=== PATIENT | male | born 1935 | race Caucasian/White ===

== ENCOUNTER 2016-06-14 14:59 | Inpatient (IN) | payer MEDICARE ==
[2016-06-14] MEDS ORDERED: SODIUM CHLORIDE 0.9% 1,000 ML IV STA (15:36)
--- NOTE | 2016-06-14 15:39 | ED ---
General Adult HPI - General Chief complaint: Urogenital Stated complaint: Abnormal Labs Time Seen by Provider: 06/14/16 15:27 Source: patient, RN notes reviewed Mode of arrival: wheelchair Limitations: no limitations - History of Present Illness Initial comments: Patient is a 81-year-old male who presents emergency room today with a chief complaint of increased falls. He states that when he stands up feels very weak. He states that he's been feeling unsteady on his feet. He states that he was advised by the home nurse that she come to the emergency room. Patient does admit to leg swelling in his lower legs. Patient states had this in the past. Admits some pain to the left elbow and also to the left heel. He states she's had frequent falls. Denies any recent head injuries or loss consciousness. Denies any use of blood thinners. He denies any other complaints. Patient denies any recent fever, chills, shortness of breath, chest pain, back pain, abdominal pain, nausea or vomiting, numbness or tingling, dysuria or hematuria, constipation or diarrhea, headaches or visual changes, or any other complaints. - Related Data Home Medications Medication Instructions Recorded Confirmed Finasteride [Proscar] 5 mg PO DAILY 02/06/15 06/14/16 QUEtiapine [SEROquel] 25 mg PO HS 06/11/15 06/14/16 Tamsulosin HCl [Flomax] 0.4 mg PO DAILY 06/11/15 06/14/16 Loteprednol Etabonate [Lotemax] 1 drop BOTH EYES TID PRN 08/10/15 06/14/16 Lisinopril [Zestril] 10 mg PO DAILY 05/04/16 06/14/16 Carbidopa/Levodopa [Sinemet CR 1 tab PO TID 06/14/16 06/14/16 50-200 mg] Furosemide [Lasix] 20 mg PO QAM 06/14/16 06/14/16 Gabapentin 600 mg PO BID 06/14/16 06/14/16 Meloxicam [Mobic] 7.5 mg PO BID PRN 06/14/16 06/14/16 Previous Rx's Medication Instructions Recorded Divalproex [Depakote] 1,000 mg PO BID tablet. 05/07/16 Allergies Allergy/AdvReac Type Severity Reaction Status Date / Time aspirin Allergy Rash/Hives Verified 06/14/16 16:18 cephalexin monohydrate Allergy Unknown Verified 05/04/16 11:16 [From Keflex] diphenhydramine HCl Allergy Rash/Hives Verified 06/14/16 16:18 [From Benadryl] Penicillins Allergy Unknown Verified 05/04/16 11:16 Sulfa (Sulfonamide Allergy Unknown Verified 05/04/16 11:16 Antibiotics) latex AdvReac Unknown Verified 05/04/16 11:16 Review of Systems ROS Statement: Those systems with pertinent positive or pertinent negative responses have been documented in the HPI. ROS Other: All systems not noted in ROS Statement are negative. 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, jihan lens surgery Past Anesthesia/Blood Transfusion Reactions: No Reported Reaction Past Psychological History: Anxiety, Depression Additional Psychological History / Comment(s): paranoid schizophrenia Smoking Status: Never smoker Past Alcohol Use History: None Reported Past Drug Use History: None Reported - Past Family History Father Family Medical History: COPD Additional Family Medical History / Comment(s): ETOH Mother Additional Family Medical History / Comment(s): MENTAL ILLNESS General Exam - General Exam Comments Initial Comments: General: The patient is awake and alert, in no distress, and does not appear acutely ill. Eye: Pupils are equal, round and reactive to light, extra-ocular movements are intact. No nystagmus. There is normal conjunctiva bilaterally. No signs of icterus. Ears, nose, mouth and throat: There are moist mucous membranes and no oral lesions. Neck: The neck is supple, there is no tenderness or JVD. Cardiovascular: There is a regular rate and rhythm. No murmur, rub or gallop is appreciated. Respiratory: Lungs are clear to auscultation, respirations are non-labored, breath sounds are equal. No wheezes, stridor, rales, or rhonchi. Gastrointestinal: Soft, non-distended, non-tender abdomen without masses or organomegaly noted. There is no rebound or guarding present. No CVA tenderness. Bowel sounds are unremarkable. Musculoskeletal: Normal ROM, no tenderness. Strength 5/5. Sensation intact. Pulses equal bilaterally 2+. 2+ pitting edema bilaterally. Normal appearance for left heel. No tenderness on exam. Normal appearance left elbow mild tenderness to posterior aspect over the olecranon. Shows full range of motion. Neurological: A&O x 3. CN II-XII intact, There are no obvious motor or sensory deficits. Coordination appears grossly intact. Speech is normal. Skin: Skin is warm and dry and no rashes or lesions are noted. Psychiatric: Cooperative, appropriate mood & affect, normal judgment. Limitations: no limitations Course Vital Signs 06/14/16 15:11 Temperature 97.9 F Pulse Rate 70 Respiratory 18 Rate Blood Pressure 157/75 O2 Sat by Pulse 97 Oximetry EKG Findings - EKG Comments: EKG Findings:: EKG performed at 1604: A 12-lead EKG was performed and interpreted by me as showing the following: Rate is 70, and rhythm is normal sinus. There are normal QRS complexes and normal R-wave progression. ST segments have no elevation or depression, and NV segments appear normal. Medical Decision Making - Medical Decision Making . Patient reexamined at this time shows no signs of distress. Patient's CAT scan negative. X-rays unremarkable. Patient's labs been reviewed does show evidence for urinary tract infection will be started on antibiotics. Did have some urinary retention had have Clay catheter places he agreed and 500 mL in his bladder. Unable to void here. Patient admits to having a history of this in the past. He does have a history of dementia unable to coming please follow- up with the past. Patient be admittedCase discussed in detail with attending physician Dr. Renee. Case discussed with Chica Harp who will accept admit for Dr Preston. - Lab Data Result diagrams: 06/14/16 15:55 06/14/16 15:55 Lab Results 06/14/16 06/14/16 06/14/16 Range/Units 15:55 15:55 15:55 WBC 7.1 (3.8-10.6) k/uL RBC 4.54 (4.30-5.90) m/uL Hgb 14.7 (13.0-17.5) gm/dL Hct 43.7 (39.0-53.0) % MCV 96.1 (80.0-100.0) fL MCH 32.3 (25.0-35.0) pg MCHC 33.6 (31.0-37.0) g/dL RDW 13.3 (11.5-15.5) % Plt Count 140 L (150-450) k/uL Neutrophils % 66 % Lymphocytes % 25 % Monocytes % 6 % Eosinophils % 1 % Basophils % 1 % Neutrophils # 4.7 (1.3-7.7) k/uL Lymphocytes # 1.8 (1.0-4.8) k/uL Monocytes # 0.5 (0-1.0) k/uL Eosinophils # 0.1 (0-0.7) k/uL Basophils # 0.0 (0-0.2) k/uL PT (9.0-12.0) sec INR (<1.1) APTT (22.0-30.0) sec Sodium 140 (137-145) mmol/L Potassium 4.9 (3.5-5.1) mmol/L Chloride 98 (98-107) mmol/L Carbon Dioxide 34 H (22-30) mmol/L Anion Gap 8 mmol/L BUN 32 H (9-20) mg/dL Creatinine 1.22 (0.66-1.25) mg/dL Est GFR (MDRD) Af Amer >60 (>60 ml/min/1.73 sqM) Est GFR (MDRD) Non-Af 57 (>60 ml/min/1.73 sqM) Glucose 74 (74-99) mg/dL Calcium 9.7 (8.4-10.2) mg/dL Magnesium 2.0 (1.6-2.3) mg/dL Total Bilirubin 1.0 (0.2-1.3) mg/dL AST 25 (17-59) U/L ALT 23 (21-72) U/L Alkaline Phosphatase 51 (38-126) U/L Total Creatine Kinase 57 (55-170) U/L CK-MB (CK-2) 2.0 (0.0-2.4) ng/mL CK-MB (CK-2) Rel Index 3.5 Troponin I <0.012 (0.000-0.034) ng/mL NT-Pro-B Natriuret Pep pg/mL Total Protein 6.3 (6.3-8.2) g/dL Albumin 3.4 L (3.5-5.0) g/dL Urine Color Urine Appearance (Clear) Urine pH (5.0-8.0) Ur Specific Nedrow (1.001-1.035) Urine Protein (Negative) Urine Glucose (UA) (Negative) Urine Ketones (Negative) Urine Blood (Negative) Urine Nitrate (Negative) Urine Bilirubin (Negative) Urine Urobilinogen (<2.0) mg/dL Ur Leukocyte Esterase (Negative) Urine RBC (0-5) /hpf Urine WBC (0-5) /hpf Ur Squamous Epith Cells (0-4) /hpf Urine Bacteria (None) /hpf Hyaline Casts (0-2) /lpf 06/14/16 06/14/16 06/14/16 Range/Units 15:55 18:29 18:45 WBC (3.8-10.6) k/uL RBC (4.30-5.90) m/uL Hgb (13.0-17.5) gm/dL Hct (39.0-53.0) % MCV (80.0-100.0) fL MCH (25.0-35.0) pg MCHC (31.0-37.0) g/dL RDW (11.5-15.5) % Plt Count (150-450) k/uL Neutrophils % % Lymphocytes % % Monocytes % % Eosinophils % % Basophils % % Neutrophils # (1.3-7.7) k/uL Lymphocytes # (1.0-4.8) k/uL Monocytes # (0-1.0) k/uL Eosinophils # (0-0.7) k/uL Basophils # (0-0.2) k/uL PT 11.9 (9.0-12.0) sec INR 1.2 (<1.1) APTT 24.8 (22.0-30.0) sec Sodium (137-145) mmol/L Potassium (3.5-5.1) mmol/L Chloride (98-107) mmol/L Carbon Dioxide (22-30) mmol/L Anion Gap mmol/L BUN (9-20) mg/dL Creatinine (0.66-1.25) mg/dL Est GFR (MDRD) Af Amer (>60 ml/min/1.73 sqM) Est GFR (MDRD) Non-Af (>60 ml/min/1.73 sqM) Glucose (74-99) mg/dL Calcium (8.4-10.2) mg/dL Magnesium (1.6-2.3) mg/dL Total Bilirubin (0.2-1.3) mg/dL AST (17-59) U/L ALT (21-72) U/L Alkaline Phosphatase (38-126) U/L Total Creatine Kinase (55-170) U/L CK-MB (CK-2) (0.0-2.4) ng/mL CK-MB (CK-2) Rel Index Troponin I (0.000-0.034) ng/mL NT-Pro-B Natriuret Pep 397 pg/mL Total Protein (6.3-8.2) g/dL Albumin (3.5-5.0) g/dL Urine Color Yellow Urine Appearance Cloudy (Clear) Urine pH 6.5 (5.0-8.0) Ur Specific Nedrow 1.014 (1.001-1.035) Urine Protein Negative (Negative) Urine Glucose (UA) Negative (Negative) Urine Ketones 1+ H (Negative) Urine Blood Negative (Negative) Urine Nitrate Negative (Negative) Urine Bilirubin Negative (Negative) Urine Urobilinogen <2.0 (<2.0) mg/dL Ur Leukocyte Esterase Small H (Negative) Urine RBC 1 (0-5) /hpf Urine WBC 11 H (0-5) /hpf Ur Squamous Epith Cells <1 (0-4) /hpf Urine Bacteria Many H (None) /hpf Hyaline Casts 6 H (0-2) /lpf Disposition Clinical Impression: UTI (urinary tract infection), Weakness, Frequent falls, Urinary retention Disposition[facility] Condition: Stable Referrals: William Sanches DO [Primary Care Provider] - 1-2 days Time of Disposition: 19:24
[2016-06-14 16:08] LABS: Basophils % (A) 1 %; CH 33.2; CHCM 34.7; Eosinophils # (A) 0.1 k/uL (0-0.7); Eosinophils % (A) 1 %; HCT 43.7 % (39.0-53.0); HDW 2.52; HGB 14.7 gm/dL (13.0-17.5); Luc # (Auto) 0.09; Luc % (Auto) 1; Lymphocytes # (A) 1.8 k/uL (1.0-4.8); Lymphocytes % (A) 25 %; MCH 32.3 pg (25.0-35.0); MCHC 33.6 g/dL (31.0-37.0); MCV 96.1 fL (80.0-100.0); Mean Platelet Volume 7.7; Monocytes # (A) 0.5 k/uL (0-1.0); Monocytes % (A) 6 %; Neutrophils # (A) 4.7 k/uL (1.3-7.7); Neutrophils % (A) 66 %; RBC 4.54 m/uL (4.30-5.90); RDW 13.3 % (11.5-15.5); WBC 7.1 k/uL (3.8-10.6); WBC (Perox) 7.12
[2016-06-14 16:25] LABS: ALT 23 U/L (21-72); AST 25 U/L (17-59); Alkaline Phosphatase 51 U/L (38-126); Anion Gap 8 mmol/L; Blood Urea Nitrogen 32 mg/dL (9-20); Calcium 9.7 mg/dL (8.4-10.2); Carbon Dioxide 34 mmol/L (22-30); Chloride 98 mmol/L (98-107); Glucose 74 mg/dL (74-99); Non-African American GFR(MDRD) 57 (>60 ml/min/1.73 sqM); Potassium 4.9 mmol/L (3.5-5.1); Sodium 140 mmol/L (137-145); Total Protein 6.3 g/dL (6.3-8.2)
[2016-06-14 16:34] LABS: Creatine Kinase 57 U/L (55-170)
[2016-06-14 16:46] LABS: Troponin I <0.012 ng/mL (0.000-0.034)
--- NOTE | 2016-06-14 16:50 | CT ---
EXAMINATION TYPE: CT brain wo con DATE OF EXAM: 06/14/2016 4:41 PM COMPARISON: 05/04/2016 INDICATION: Patient poor historian. DLP: 2499 mGycm, Automated exposure control for dose reduction was used. CONTRAST: None CT of the brain is performed utilizing 3 mm thick sections through the posterior fossa and 3 mm thick sections through the remaining calvarium. Study is performed within 24 hours of arrival to the hosp ital. No abnormal hyperdensity is present to suggest an acute intracranial hemorrhage. No mass lesion is evident. No acute infarcts are evident. Periventricular white matter hypodensity is present, most likely on th e basis of chronic white matter ischemic changes. Ventricles and sulci are slightly prominent for the patient age. Paranasal sinuses and mastoid air cells within the [id number] are clear. IMPRESSIONS: 1. Atrophy with chronic appearing white matter ischemic type changes.
--- NOTE | 2016-06-14 17:13 | XR ---
EXAMINATION TYPE: XR chest 2V DATE OF EXAM: 06/14/2016 5:05 PM COMPARISON: 08/09/2015 HISTORY: Chest pain TECHNIQUE: Frontal and lateral views of the chest are obtained. FINDINGS: There is no heart failure nor confluent pneumonic infiltrate. There are no hilar masses. T here are chest leads. Costophrenic angles are clear. There is spurring in the thoracic spine. IMPRESSION: No active cardiopulmonary disease. There is improved inspiration and clearing of the int erstitial infiltrates and atelectasis compared to last exam.
--- NOTE | 2016-06-14 17:15 | XR ---
EXAMINATION TYPE: XR elbow complete LT DATE OF EXAM: 06/14/2016 5:05 PM COMPARISON: NONE HISTORY: Elbow pain TECHNIQUE: 3 views FINDINGS: I see no fracture nor dislocation. Joint spaces are fairly normal. There is no sign of elbo w joint effusion. IMPRESSION: No acute abnormality of the left elbow.
--- NOTE | 2016-06-14 17:17 | XR ---
EXAMINATION TYPE: XR foot complete LT DATE OF EXAM: 06/14/2016 5:05 PM COMPARISON: NONE HISTORY: Foot pain TECHNIQUE: 3 views FINDINGS: Metatarsals appear intact. There is a large plantar calcaneal spur. There is a small Achill es calcaneal spur. There is mild soft tissue swelling of the forefoot. I see no fracture nor dislocat ion. IMPRESSION: Calcaneal spurring. Soft tissue swelling. No fracture.
[2016-06-14 18:48] LABS: INR 1.2 (<1.1); Partial Thromboplastin Time 24.8 sec (22.0-30.0); Prothrombin Time 11.9 sec (9.0-12.0)
[2016-06-14 19:13] LABS: Appearance,Urine Cloudy (Clear); Bacteria,Urine Many /hpf; Bilirubin,Urine Negative (Negative); Glucose,Urine (UA) Negative (Negative); Ketones,Urine 1+ (Negative); Leukocyte Esterase,Urine Small (Negative); Nitrite,Urine Negative (Negative); PH, Urine 6.5 (5.0-8.0); Particle Count 53048; Protein,Urine Negative (Negative); RBC,Urine 1 /hpf (0-5); Specific Gravity,Urine 1.014 (1.001-1.035); Squamous Epithelial Cell,Urine <1 /hpf (0-4); UA Billing (MACRO vs. MICRO) MICRO; Urobilinogen,Urine <2.0 mg/dL (<2.0); WBC,Urine 11 /hpf (0-5)
[2016-06-14] MEDS ORDERED: CIPROFLOXACIN HCL 500 MG TAB PO STA (19:24)
[2016-06-14] MEDS ORDERED: ONDANSETRON 4 MG/2 ML VIAL IVP PRN (19:25)
[2016-06-14] MEDS ORDERED: SODIUM CHLORIDE 0.9% 1,000 ML IV ONE (19:25)
[2016-06-14] MEDS ORDERED: ACETAMINOPHEN TAB 325 MG TAB PO PRN (19:25)
[2016-06-14] MEDS ORDERED: NALOXONE 0.4 MG/ML 1 ML VIAL IV PRN (19:25)
[2016-06-14 22:16] VITALS: BMI 27.1
[2016-06-14] MEDS ORDERED: prednisoLONE ACETATE 1% OPHTH DROPS 1 ML BTL BOTH EYES PRN (22:59)
[2016-06-14] MEDS ORDERED: MELOXICAM 7.5 MG TAB PO PRN (22:59)
[2016-06-14] MEDS: DIVALPROEX 500 MG TABLET.DR PO SCH (23:42)
[2016-06-14] MEDS: CARBIDOPA-LEVODOPA ER 50-200MG 1 EACH TABLET.ER PO SCH (23:42)
[2016-06-14] MEDS: QUEtiapine 25 MG TAB PO SCH (23:42)
[2016-06-14] MEDS: GABAPENTIN 300 MG CAP PO SCH (23:42)
[2016-06-15 08:48] LABS: Basophils % (A) 0 %; CH 32.9; Eosinophils # (A) 0.1 k/uL (0-0.7); Eosinophils % (A) 1 %; HCT 40.4 % (39.0-53.0); HDW 2.44; HGB 13.7 gm/dL (13.0-17.5); Luc # (Auto) 0.11; Luc % (Auto) 2; Lymphocytes # (A) 2.9 k/uL (1.0-4.8); Lymphocytes % (A) 44 %; MCH 32.8 pg (25.0-35.0); MCHC 33.8 g/dL (31.0-37.0); Monocytes # (A) 0.4 k/uL (0-1.0); Monocytes % (A) 7 %; Neutrophils % (A) 46 %; RBC 4.17 m/uL (4.30-5.90); RDW 13.1 % (11.5-15.5); WBC 6.6 k/uL (3.8-10.6); WBC (Perox) 7.14
[2016-06-15] MEDS ORDERED: CIPROFLOXACIN HCL 500 MG TAB PO SCH (09:00)
[2016-06-15] MEDS ORDERED: LISINOPRIL 10 MG TAB PO SCH (09:00)
[2016-06-15 09:11] LABS: ALT 21 U/L (21-72); AST 19 U/L (17-59); Alkaline Phosphatase 42 U/L (38-126); Anion Gap 6 mmol/L; Blood Urea Nitrogen 27 mg/dL (9-20); Calcium 8.5 mg/dL (8.4-10.2); Carbon Dioxide 32 mmol/L (22-30); Chloride 100 mmol/L (98-107); Glucose 74 mg/dL (74-99); Non-African American GFR(MDRD) >60 (>60 ml/min/1.73 sqM); Sodium 138 mmol/L (137-145); Total Bilirubin 0.9 mg/dL (0.2-1.3); Total Protein 5.1 g/dL (6.3-8.2)
[2016-06-15] MEDS: CARBIDOPA-LEVODOPA ER 50-200MG 1 EACH TABLET.ER PO SCH ×3 (09:52→21:00)
[2016-06-15] MEDS: GABAPENTIN 300 MG CAP PO SCH ×2 (09:52→21:00)
[2016-06-15] MEDS: DIVALPROEX 500 MG TABLET.DR PO SCH ×2 (09:53→21:00)
[2016-06-15] MEDS: FUROSEMIDE 20 MG TAB PO SCH (09:53)
[2016-06-15] MEDS: FINASTERIDE 5 MG TAB PO SCH (09:53)
[2016-06-15] MEDS: TAMSULOSIN 0.4 MG CAP.ER.24H PO SCH (09:53)
[2016-06-15] MEDS: HYDROcodone/APAP 5-325MG 1 EACH TAB PO PRN (14:34)
--- NOTE | 2016-06-15 19:49 | HP ---
DATE OF ADMISSION: Patient is a 81-year-old who was discharged recently from subacute rehab with home care. Patient is unable to ambulate and was having multiple falls. Patient denied any fever or chills. Patient denied any dysuria. The results of the UA showed some leukocyte esterase, but patient does not have any dysuria. Patient has a Clay catheter, which we will get rid of and will watch him without Clay catheter and see how he does. Patient has uncontrolled Parkinson's, because of which I am consulting Dr. Castillo to see if he can change any medications, thereby improving his symptoms. Patient denied any fever or chills. Patient denied any cough or runny nose. Patient denied any nausea or vomiting. Patient denied any dysuria, hematuria. REVIEW OF SYSTEMS: CONSTITUTIONAL: No fever, no malaise, no fatigue. HEENT: No recent visual problems or hearing problems. Denied any sore throat. CARDIOVASCULAR: No chest pain, orthopnea, PND, no palpitations, no syncope. PULMONARY: No shortness of breath, no cough, no hemoptysis. GASTROINTESTINAL: No diarrhea, no nausea, no vomiting, no abdominal pain. Normoactive bowel sounds. NEUROLOGICAL: As described in HPI. HEMATOLOGICAL: Denies any bleeding or petechiae. GENITOURINARY: Denies any burning micturition, frequency, or urgency. MUSCULOSKELETAL/RHEUMATOLOGICAL: Denies any joint pain, swelling, or any muscle pain. ENDOCRINE: Denies any polyuria or polydipsia. GENERAL: As described in HPI. The rest of the 14 point review of systems is negative. Home medications include: 1. Finasteride. 2. Quetiapine. 3. Tamsulosin. 4. Lisinopril. 5. Carbidopa levodopa. 6. Lasix. 7. Gabapentin. 8. Meloxicam. 9. Depakote. ALLERGIES: 1. ASPIRIN. 2. KEFLEX. 3. DIPHENHYDRAMINE. 4. PENICILLIN. 5. SULFA DRUGS. Past medical history is significant for: 1. Parkinson's. 2. Probable mild dementia. 3. Hypertension. 4. Seizure disorder. 5. Cholecystectomy. 6. Anxiety. 7. Depression. 8. Generalized deconditioning. SOCIAL HISTORY: Denied any smoking, alcohol abuse or any drug abuse. FAMILY HISTORY: Father had COPD, alcohol abuse. Mother had some kind of mental illness. PHYSICAL EXAMINATION: VITAL SIGNS: Temperature 96.3, pulse of 67, respiratory rate of 16. Blood pressure 112/57. Saturating at 95% on room air. GENERAL: HEENT: Pupils are round and equally reacting to light. EOMI. No scleral icterus. No conjunctival pallor. Normocephalic, atraumatic. No pharyngeal erythema. No thyromegaly. CARDIOVASCULAR: S1 and S2 present. No murmurs, rubs, or gallops. PULMONARY: Chest is clear to auscultation, no wheezing or crackles. ABDOMEN: Soft, nontender, nondistended, normoactive bowel sounds. No palpable organomegaly. MUSCULOSKELETAL: No joint swelling or deformity. EXTREMITIES: One plus pitting pedal edema in bilateral lower extremities. NEUROLOGICAL: The patient was found to have a flat affect. Patient does have typical ( ) with generalized weakness in bilateral lower limbs. Patient does have some muscle atrophy replaced by fat. SKIN: No rashes. LABORATORY DATA: CBC, CMP are abnormal for mildly elevated creatinine of 1.22. Now it is 0.98, because of which I will go ahead and start him on Lasix. If patient's kidney function worsens, we need to completely get rid of Lasix and start him on compression socks, although patient does not but appear to have any CHF at this point of time. Chest x-ray is clear. ASSESSMENT AND PLAN: 1. Generalized deconditioning and falls secondary to Parkinson's itself. I am consulting Neurology to see if any of the parkinsonian medications can be changed to improve his symptoms, thereby improving his functionality. Will also consult Physical Therapy and Occupational Therapy. 2. Falls. Patient had a workup with brain CT, foot x-rays, chest x-ray and an elbow x-ray which did not show any significant fractures. 3. Advanced Parkinson's. Continue his home medications. 4. Hypertension. 5. Benign prostatic hypertrophy. 6. Peripheral neuropathy. 7. Depression. For above-mentioned chronic medical problems, I will go ahead and continue his home medications. PT and OT consultation. geophysical manager and social media senior associate evaluation as well.
[2016-06-15] MEDS: ENTACAPONE 200 MG TAB PO SCH (21:00)
[2016-06-15] MEDS: QUEtiapine 25 MG TAB PO SCH (21:00)
[2016-06-15] MEDS: CARBIDOPA-LEVODOPA ER 25-100MG 1 EACH TABLET.ER PO SCH (21:00)
[2016-06-16] MEDS: GABAPENTIN 300 MG CAP PO SCH ×2 (08:21→21:37)
[2016-06-16] MEDS: ENTACAPONE 200 MG TAB PO SCH ×3 (08:21→22:12)
[2016-06-16] MEDS: DIVALPROEX 500 MG TABLET.DR PO SCH ×2 (08:21→21:36)
[2016-06-16] MEDS: FUROSEMIDE 20 MG TAB PO SCH (08:22)
[2016-06-16] MEDS: CARBIDOPA-LEVODOPA ER 50-200MG 1 EACH TABLET.ER PO SCH ×3 (08:22→22:12)
[2016-06-16] MEDS: LISINOPRIL 5 MG TAB PO SCH (08:22)
[2016-06-16] MEDS: CARBIDOPA-LEVODOPA ER 25-100MG 1 EACH TABLET.ER PO SCH ×3 (08:22→22:12)
[2016-06-16] MEDS: TAMSULOSIN 0.4 MG CAP.ER.24H PO SCH (08:22)
[2016-06-16] MEDS: FINASTERIDE 5 MG TAB PO SCH (08:22)
[2016-06-16 09:32] LABS: Anion Gap 7 mmol/L; Blood Urea Nitrogen 29 mg/dL (9-20); Calcium 8.2 mg/dL (8.4-10.2); Carbon Dioxide 32 mmol/L (22-30); Chloride 100 mmol/L (98-107); Glucose 101 mg/dL (74-99); Non-African American GFR(MDRD) >60 (>60 ml/min/1.73 sqM); Potassium 3.7 mmol/L (3.5-5.1); Sodium 139 mmol/L (137-145)
--- NOTE | 2016-06-16 09:57 | CONS ---
DATE OF CONSULTATION: 06/15/2016 CHIEF COMPLAINT: Parkinson's disease and recurrent falls. HISTORY OF PRESENT ILLNESS: The patient is a pleasant 81-year-old, male who is being evaluated today on 06/15/16 by the neurology service per the request of Dr. Preston for the above-mentioned complaints. The patient has history of Parkinson's disease, which was diagnosed over 7 years ago according to the patient. His symptoms have been progressively getting worse over the past year. His tremors are uncontrolled and more recently, he has been having frequent falls. He was receiving inpatient physical rehabilitation at a local facility but this has not improved his symptoms. He is currently on Sinemet CR 50/200 mg 3 times daily. The patient believes that he was on Requip early during his disease, but he is unclear why this was discontinued. He is complaining of severe tremors that are more severe in the right upper extremity compared to the left. He denies any swallowing difficulties. A CT scan of the brain was done, which showed no acute abnormalities. There were small vessel ischemic changes and generalized atrophy. His CBC showed mild thrombocytopenia at 135,000. His comprehensive metabolic profile was normal except for mildly elevated BUN at 27. His urinalysis showed 11 WBCs with small leukocyte esterase. PAST MEDICAL HISTORY: Parkinson's disease, Alzheimer's dementia, hypertension, seizure disorder, history of cholecystectomy, history of melanoma, history of depression and anxiety disorder along with paranoid schizophrenia. SOCIAL HISTORY: He denied any tobacco, alcohol or drug use. FAMILY HISTORY: Positive for psychiatric disorders and chronic obstructive pulmonary disease. HOME MEDICATIONS: Reviewed in the chart. ALLERGIES: ASPIRIN, KEFLEX, BENADRYL, PENICILLIN, SULFA DRUGS, LATEX. REVIEW OF SYSTEMS: CONSTITUTIONAL: Positive for fatigue. EYES: Negative. ENT: Negative. CARDIOVASCULAR: Negative. RESPIRATORY: Negative. NEUROLOGICAL: As mentioned above. GASTROINTESTINAL: Positive for occasional diarrhea. GENITOURINARY: Negative. PSYCHIATRIC: As mentioned above. DERMATOLOGICAL: Positive for history of melanoma. ENDOCRINE: Negative. MUSCULOSKELETAL: Positive for occasional joint pain. PHYSICAL EXAM: Vital signs show a temperature of 96.5, pulse 63, respirations 16, blood pressure 143/69. GENERAL APPEARANCE: The patient is a well-developed, elderly male who appears to be in no acute distress. HEENT: Normocephalic, atraumatic, Parkinsonian facial features are noticed, no facial asymmetry is seen. Extraocular muscles are intact. Neck is supple with no masses felt. CARDIOVASCULAR: Regular rate and rhythm. ABDOMEN: Nontender, nondistended. Extremities showed edema in bilateral lower extremities with no clubbing seen. NEUROLOGICAL EXAM: The patient is awake and oriented x3. Speech is mildly dysarthric. Language testing was normal. A significant resting and postural tremors are seen in bilateral upper extremities, right more than left. Cogwheel rigidity is present in bilateral upper extremities. [id number]-[id number] testing showed significant dysmetria. Sensory exam was normal to light touch in all 4 extremities. No lateralizing weakness is seen. IMPRESSION: 1. Uncontrolled Parkinson's disease. 2. Significant tremors. 3. Gait instability due to Parkinson's disease. 4. Recurrent falls. 5. Acute urinary tract infection. 6. Mild thrombocytopenia. RECOMMENDATIONS: The patient's parkinsonian symptoms are quite advanced at this time. He states that his Parkinson's medications have not been adjusted in over 6 months. He is currently on Sinemet CR 50/200 mg 3 times daily. I will add to this dose Sinemet CR 25/100 mg 3 times daily and I will also add Comtan 200 mg 3 times daily to be taken alongside the Sinemet. Given the fact that he has been on Sinemet for several years, I do not believe adding a dopamine agonist would benefit him at this time. In the future Azilect may be added for increased symptom control. The patient will need extensive gait training for Parkinson's disease, which will be done in the outpatient setting. Physical therapy had been consulted at this time. Continue on neuro checks. Continue antibiotic therapy for his urinary tract infection. Thank you for allowing me to participate in the care of your patient. If you have any questions, please feel free to contact me.
[2016-06-16] MEDS: LEVOFLOXACIN 500MG-D5W PMX 500 MG in DEXTROSE/WATER 1 100ML.BAG IVPB SCH (14:34)
--- NOTE | 2016-06-16 16:49 | P.PN ---
Subjective Principal diagnosis: Patient is a pleasant 81-year-old male is being followed by the neurology service for Parkinson's disease and recurrent falls. Patient was diagnosed 7 years ago with Parkinson's. His symptoms have been becoming progressively worse. His tremors are uncontrolled and he has been having frequent falls. Computed tomography scan of the brain was done which showed no acute abnormalities. Computed tomography scan did reveal small vessel ischemic changes and generalized atrophy. At the time of my evaluation, patient is resting comfortably in bed and appears to be in no acute distress. Objective - Vital Signs Vital signs: Vital Signs Temp 96.9 F L 06/16/16 14:49 Pulse 68 06/16/16 14:49 Resp 16 06/16/16 14:49 BP 135/74 06/16/16 14:49 Pulse Ox 95 06/16/16 14:49 Intake & Output 06/15/16 06/16/16 06/16/16 18:59 06:59 18:59 Intake Total 730 Output Total 994 [id number] Balance - Intake: Oral 730 Output: Urine 838 [id number] Other: Voiding Method Indwelling Catheter Indwelling Catheter Indwelling Catheter # Bowel Movements 1 2 - Exam PHYSICAL EXAM: GENERAL APPEARANCE: Patient is a well-developed, male who appears to be in no acute distress. HEENT: Normocephalic, atraumatic, no facial asymmetry is seen. Neck is supple with no masses felt. CARDIOVASCULAR: Regular rate and rhythm. ABDOMEN: Nontender, nondistended. EXTREMITIES: Show no edema or clubbing. Tremors greater on the right as compared to the left NEUROLOGICAL EXAM: Patient is awake, alert, and oriented 3. Speech is mildly dysarthric. Language is normal. Patient has significant resting tremor and postural tremors are seen in bilateral upper extremities which is greater on the right as compared to the left. Cogwheel rigidity noted to bilateral upper extremities. [id number]-[id number] testing showed significant dysmetria. Sensory exam is normal to light touch in all 4 extremities. No lateralizing weakness is seen. - Labs CBC & Chem 7: 06/15/16 08:05 06/16/16 08:24 Labs: Abnormal Lab Results - Last 24 Hours (Table) 06/16/16 Range/Units 08:24 Carbon Dioxide 32 H (22-30) mmol/L BUN 29 H (9-20) mg/dL Glucose 101 H (74-99) mg/dL Calcium 8.2 L (8.4-10.2) mg/dL Assessment and Plan Plan: Impression: 1. Uncontrolled Parkinson's disease 2. Significant tremors 3. Gait instability due to Parkinson's disease 4. Recurrent falls 5. Acute urinary tract infection Recommendations: The patient's parkinsonian symptoms are quite advanced. Berger 200 mg 3 times a day has been added along with an increase in his Sinemet. Patient does state he notices mild improvement. Continue physical therapy as inpatient, but physical therapy will need to be continued as an outpatient as well. Continue neurological checks. Her current medical management. We will continue to follow and make necessary medication adjustments as an outpatient. I will continue to follow with you. Recommendations to follow. I performed an examination of the patient and discussed the management with the UNIT MANAGER RN. I have reviewed the UNIT MANAGER RN notes and agree with the findings and plan of care.
[2016-06-16] MEDS: LORazepam 2 MG/ML SYRINGE IV PRN (18:57)
[2016-06-16] MEDS: HEPARIN SODIUM,PORCINE 5,000 UNIT/ML 1 ML VIAL SQ SCH (21:37)
[2016-06-16] MEDS: QUEtiapine 25 MG TAB PO SCH (21:37)
--- NOTE | 2016-06-16 21:44 | PN ---
DATE OF SERVICE: 06/16/2016 This 81-year-old gentleman, admitted with multiple medical problems, also had change in mental status. Possible metabolic encephalopathy is considered. The patient also had evidence of UTI. Sepsis could also be a remote possibility. The patient has got significant gait dysfunction. The patient is very stiff in the bed at this time. The patient is confused. The patient is tremulous. Past medical history reviewed. Review of systems could not be taken because of the above-mentioned reasons. Current medications are reviewed and include: 1. Tylenol 650 q.6. 2. Sandstone 5 mg. 3. Sinemet 50/200. 4. Depakote. 5. Comtan 200 mg t.i.d. 6. Proscar. 7. Lasix. 8. Neurontin 600 mg p.o. daily. 9. Levaquin. 10. Zestril. 11. Ativan. 12. Mobic. 13. Zofran. 14. Pred Forte. 15. Seroquel. 16. Flomax. PHYSICAL EXAMINATION: Patient is stuporous, confused. Pulse 68, blood pressure 130/74, respiration 16, temperature 96.9, pulse ox 94% on room air. HEENT: Conjunctivae normal. Oral mucosa moist. NECK: No jugular venous distention. No carotid bruit. No lymph node enlargement. CARDIOVASCULAR SYSTEM: S1, S2 muffled. RESPIRATORY SYSTEM: Breath sounds diminished at the bases. A few scattered rhonchi. ABDOMEN: Soft, nontender. No mass palpable. LEGS: No edema. No swelling. NERVOUS SYSTEM: Higher functions as mentioned earlier. Otherwise, moves all 4 limbs. The power is markedly diminished. Tone is increased. Stiff. Tremors also present. SKIN: No ulcer, rash, bleeding. LYMPHATICS: No lymph node palpable in neck, axilla or groin. LABS: WBC 6.6, hemoglobin 13.7. Other labs are noted. CO2 is 32. UA noted. ASSESSMENT: 1. Metabolic encephalopathy; rule out sepsis. 2. Urinary tract infection with possible sepsis. 3. Gait dysfunction, possibly acute Parkinson's exacerbation or secondary to metabolic encephalopathy. 4. Increased carbon dioxide. 5. History of Parkinson's. 6. History of dementia. 7. Hypertension. 8. History of seizure disorder. 9. Chronic indwelling Clay catheter. 10. History of recurrent falls. 11. Gait dysfunction. 12. Anxiety, depression. 13. History of paranoid schizophrenia. RECOMMENDATIONS AND DISCUSSION: In this 81-year-old gentleman who presented with multiple complex medical issues, we will monitor the patient closely, continue the current medications, continue with symptomatic treatment. I would recommend initiating broad-spectrum IV antibiotics. Follow the cultures. Continue with IV hydration. PT, OT to evaluate the patient. Overall prognosis is guarded. This patient will require inpatient admission for more than 24 hours to ensure full investigations and continued followup as well. See orders for further details. Further recommendations to follow. Overall prognosis guarded.
[2016-06-16] MEDS: HYDROcodone/APAP 5-325MG 1 EACH TAB PO PRN (23:38)
[2016-06-17] MEDS: TAMSULOSIN 0.4 MG CAP.ER.24H PO SCH (07:42)
[2016-06-17] MEDS: CARBIDOPA-LEVODOPA ER 50-200MG 1 EACH TABLET.ER PO SCH ×3 (07:42→22:00)
[2016-06-17] MEDS: ENTACAPONE 200 MG TAB PO SCH ×3 (07:42→22:00)
[2016-06-17] MEDS: CARBIDOPA-LEVODOPA ER 25-100MG 1 EACH TABLET.ER PO SCH ×3 (07:43→22:00)
[2016-06-17] MEDS: DIVALPROEX 500 MG TABLET.DR PO SCH ×2 (07:43→20:36)
[2016-06-17] MEDS: GABAPENTIN 300 MG CAP PO SCH ×2 (07:43→20:37)
[2016-06-17] MEDS: HEPARIN SODIUM,PORCINE 5,000 UNIT/ML 1 ML VIAL SQ SCH ×2 (07:43→22:28)
[2016-06-17] MEDS: LISINOPRIL 5 MG TAB PO SCH (07:43)
[2016-06-17] MEDS: FINASTERIDE 5 MG TAB PO SCH (07:44)
[2016-06-17] MEDS: FUROSEMIDE 20 MG TAB PO SCH (07:44)
[2016-06-17] MEDS: MULTIVITAMINS, THERA 1 EACH TAB PO SCH (11:59)
[2016-06-17] MEDS: LEVOFLOXACIN 500MG-D5W PMX 500 MG in DEXTROSE/WATER 1 100ML.BAG IVPB SCH (11:59)
[2016-06-17] MEDS: FOLIC ACID 1 MG TAB PO SCH (11:59)
[2016-06-17] MEDS: THIAMINE 100 MG TAB PO SCH (11:59)
[2016-06-17 12:28] LABS: Anion Gap 7 mmol/L; Blood Urea Nitrogen 22 mg/dL (9-20); Calcium 7.9 mg/dL (8.4-10.2); Carbon Dioxide 32 mmol/L (22-30); Chloride 100 mmol/L (98-107); Glucose 74 mg/dL (74-99); Non-African American GFR(MDRD) >60 (>60 ml/min/1.73 sqM); Potassium 4.3 mmol/L (3.5-5.1); Sodium 139 mmol/L (137-145)
[2016-06-17 12:32] LABS: Basophils % (A) 0 %; CH 32.7; CHCM 33.5; Eosinophils # (A) 0.2 k/uL (0-0.7); Eosinophils % (A) 2 %; HCT 43.1 % (39.0-53.0); HDW 2.48; HGB 14.2 gm/dL (13.0-17.5); Luc # (Auto) 0.12; Luc % (Auto) 2; Lymphocytes # (A) 3.3 k/uL (1.0-4.8); Lymphocytes % (A) 45 %; MCH 32.4 pg (25.0-35.0); MCHC 33.1 g/dL (31.0-37.0); Mean Platelet Volume 7.6; Monocytes # (A) 0.5 k/uL (0-1.0); Monocytes % (A) 6 %; Neutrophils # (A) 3.3 k/uL (1.3-7.7); Neutrophils % (A) 45 %; WBC 7.3 k/uL (3.8-10.6); WBC (Perox) 7.43
--- NOTE | 2016-06-17 17:33 | P.PN ---
Subjective Principal diagnosis: Patient is a pleasant 81-year-old male is being followed by the neurology service for Parkinson's disease and recurrent falls. Patient was diagnosed 7 years ago with Parkinson's. His symptoms have been becoming progressively worse. His tremors are uncontrolled and he has been having frequent falls. Computed tomography scan of the brain was done which showed no acute abnormalities. Computed tomography scan did reveal small vessel ischemic changes and generalized atrophy. At the time of my evaluation, patient is resting comfortably in bed and appears to be in no acute distress. Objective - Vital Signs Vital signs: Vital Signs Temp 96.8 F L 06/17/16 15:00 Pulse 75 06/17/16 15:00 Resp 19 06/17/16 16:00 BP 178/114 06/17/16 15:00 Pulse Ox 99 06/17/16 15:00 Intake & Output 06/16/16 06/17/16 06/17/16 18:59 06:59 18:59 Intake Total 200 Output Total 1200 175 Balance -1000 -175 Intake: Oral 200 Output: Urine 1200 175 Straight 175 Other: Voiding Method Indwelling Catheter Indwelling Catheter # Bowel Movements 1 - Exam PHYSICAL EXAM: GENERAL APPEARANCE: Patient is a well-developed, male who appears to be in no acute distress. HEENT: Normocephalic, atraumatic, no facial asymmetry is seen. Neck is supple with no masses felt. CARDIOVASCULAR: Regular rate and rhythm. ABDOMEN: Nontender, nondistended. EXTREMITIES: Show no edema or clubbing. Tremors greater on the right as compared to the left NEUROLOGICAL EXAM: Patient is awake, alert, and oriented 3. Speech is mildly dysarthric. Language is normal. Patient has resting tremor and postural tremors in bilateral upper extremities which is greater on the right as compared to the left. Cogwheel rigidity noted to bilateral upper extremities. Mhvhns-[id number] testing showed significant dysmetria. Sensory exam is normal to light touch in all 4 extremities. No lateralizing weakness is seen. - Labs CBC & Chem 7: 06/17/16 08:20 06/17/16 08:20 Labs: Abnormal Lab Results - Last 24 Hours (Table) 06/17/16 06/17/16 Range/Units 08:20 08:20 Plt Count 126 L (150-450) k/uL Carbon Dioxide 32 H (22-30) mmol/L BUN 22 H (9-20) mg/dL Calcium 7.9 L (8.4-10.2) mg/dL Assessment and Plan Plan: Impression: 1. Uncontrolled Parkinson's disease 2. Significant tremors 3. Gait instability due to Parkinson's disease 4. Recurrent falls 5. Acute urinary tract infection Recommendations: The patient's parkinsonian symptoms are quite advanced. Berger 200 mg 3 times a day has been added along with an increase in his Sinemet. Tremors have improved with this new dose. Continue physical therapy as inpatient, but physical therapy will need to be continued as an outpatient as well. Continue neurological checks. Her current medical management. We will continue to follow and make necessary medication adjustments as an outpatient. I will continue to follow with you on an as-needed basis. Feel free to call with any questions or concerns. I performed an examination of the patient and discussed the management with the [employer]. I have reviewed the [employer] notes and agree with the findings and plan of care.
[2016-06-17] MEDS ORDERED: INFLUENZA VACCINE (3YR+) 60 MCG/0.5 ML SYRINGE IM ONE (18:10)
[2016-06-17] MEDS ORDERED: PNEUMOCOCCAL VACC-PNEUMOVAX 23 25 MCG/0.5 ML VIAL IM ONE (18:10)
[2016-06-17] MEDS: LORazepam 2 MG/ML SYRINGE IV PRN (18:24)
--- NOTE | 2016-06-17 20:32 | PN ---
DATE OF SERVICE: 06/17/2016 This 81 -year-old gentleman who was admitted with multiple medical problems including change in mental status as well as Parkinsonism acute exacerbation, also had a possible UTI with sepsis, also the patient was started on empiric antibiotics and higher dose of antiparkinsonian medications. The patient is improving slightly. The cultures are negative so far. The patient on IV antibiotics as mentioned earlier. The patient is able to walk with walker at this time. PAST MEDICAL HISTORY: Reviewed. Review of systems could not be taken, the patient still has significant dysarthria and change in mental status. The current medications are reviewed and include: 1. Tylenol 650 q6h p.r.n. 2. [place]. 3. Sinemet 50/200 t.i.d. as well as 25/100 p.o. t.i.d. 4. Depakote 2000 mg b.i.d. 5. Comtan 200 mg. 6. Proscar 5 mg daily. 7. Folic acid 1 mg daily. 8. Lasix 20 mg. 9. Neurontin. 10. Heparin subcu. 11. Zestril 5 mg p.o. daily, 12. Mobic 7.5 b.i.d. 14. Narcan 0.2 q.2 p.r.n. 15. Zofran. 16. Seroquel. 17. Flomax 0.4 daily. 18. Vitamin B 100 mg p.o. daily. PHYSICAL EXAMINATION: The patient is alert, conscious, but confused and dysarthric. Pulse 75, blood pressure 178/114, respiratory rate 20. Temperature 97.8. Pulse ox 91% on room air. HEENT: Conjunctivae normal. Oral mucosa moist. NECK: No jugular venous distention. No carotid bruit. No lymph node enlargement. CARDIOVASCULAR: S1, S2 muffled. RESPIRATORY: Breath sounds diminished at the bases. Bilateral scattered rhonchi and crackles. ABDOMEN: Soft. Nontender. No mass palpable. LEGS: No edema. No swelling. Nervous system: Diffusely weak. Increased tone and tremors also present. LAB INVESTIGATIONS: CBC within normal limits. Platelets 126. CO2 is 32. Lactic acid is 2.2 and 0.8. ASSESSMENT: 1. Change in mental status with possible acute metabolic encephalopathy. 2. Urinary tract infection with possible sepsis, present on admission. Possible related to indwelling Clay catheter. 3. Gait dysfunction, possible acute Parkinson's exacerbation, and also secondary to metabolic encephalopathy. 4. Increased carbon dioxide. 5. Increased lactic acid. 6. History of Parkinson's. 7. History of dementia. 8. Gait dysfunction. 9. Hypertension. 10. History of seizure disorder. 11. Chronic indwelling Clay catheter. 12. History of recurrent falls. 13. Gait dysfunction. 14. Anxiety, depression. 15. History of paranoid schizophrenia. RECOMMENDATIONS AND DISCUSSION: In this 81-year-old gentleman who presented with multiple complex medical issues, we will monitor the patient closely. Continue the current medications. Continue symptomatic treatment. Continue with empiric antibiotics. Continue DVT prophylaxis. Otherwise, continue with the antiparkinsonian medication as mentioned earlier. The tone and rigidity are slightly improving yesterday the patient was almost completely and today the patient seems to be able to move hands with , but; however we will continue to monitor. Continue the rest of the medications. PT/OT evaluation. Continue with hydration and prognosis guarded because of multiple complex medical issues. Further recommendations to follow. MTDD
[2016-06-17] MEDS: QUEtiapine 25 MG TAB PO SCH (20:38)
[2016-06-18] MEDS: LORazepam 2 MG/ML SYRINGE IV PRN (06:03)
[2016-06-18 08:34] LABS: Basophils % (A) 0 %; CH 32.9; CHCM 34.2; Eosinophils # (A) 0.2 k/uL (0-0.7); Eosinophils % (A) 2 %; HCT 40.3 % (39.0-53.0); HDW 2.53; HGB 13.4 gm/dL (13.0-17.5); Luc # (Auto) 0.12; Luc % (Auto) 2; Lymphocytes # (A) 2.6 k/uL (1.0-4.8); Lymphocytes % (A) 37 %; MCH 32.1 pg (25.0-35.0); MCHC 33.3 g/dL (31.0-37.0); MCV 96.4 fL (80.0-100.0); Monocytes # (A) 0.5 k/uL (0-1.0); Monocytes % (A) 8 %; Neutrophils # (A) 3.5 k/uL (1.3-7.7); Neutrophils % (A) 51 %; RBC 4.18 m/uL (4.30-5.90); WBC (Perox) 7.31
[2016-06-18 09:10] LABS: Anion Gap 6 mmol/L; Blood Urea Nitrogen 18 mg/dL (9-20); Carbon Dioxide 31 mmol/L (22-30); Chloride 101 mmol/L (98-107); Glucose 71 mg/dL (74-99); Non-African American GFR(MDRD) >60 (>60 ml/min/1.73 sqM); Potassium 3.7 mmol/L (3.5-5.1); Sodium 138 mmol/L (137-145)
[2016-06-18] MEDS: HEPARIN SODIUM,PORCINE 5,000 UNIT/ML 1 ML VIAL SQ SCH (09:13)
[2016-06-18] MEDS: CARBIDOPA-LEVODOPA ER 25-100MG 1 EACH TABLET.ER PO SCH ×3 (09:13→21:15)
[2016-06-18] MEDS: GABAPENTIN 300 MG CAP PO SCH ×2 (09:13→20:24)
[2016-06-18] MEDS: DIVALPROEX 500 MG TABLET.DR PO SCH ×2 (09:14→20:25)
[2016-06-18] MEDS: CARBIDOPA-LEVODOPA ER 50-200MG 1 EACH TABLET.ER PO SCH ×3 (09:14→21:15)
[2016-06-18] MEDS: FUROSEMIDE 20 MG TAB PO SCH (09:14)
[2016-06-18] MEDS: LISINOPRIL 5 MG TAB PO SCH (09:15)
[2016-06-18] MEDS: ENTACAPONE 200 MG TAB PO SCH ×3 (09:15→21:15)
[2016-06-18] MEDS: FINASTERIDE 5 MG TAB PO SCH (09:15)
[2016-06-18] MEDS: TAMSULOSIN 0.4 MG CAP.ER.24H PO SCH (09:15)
[2016-06-18] MEDS: FOLIC ACID 1 MG TAB PO SCH (14:30)
[2016-06-18] MEDS: LEVOFLOXACIN 500MG-D5W PMX 500 MG in DEXTROSE/WATER 1 100ML.BAG IVPB SCH (14:30)
[2016-06-18] MEDS: MULTIVITAMINS, THERA 1 EACH TAB PO SCH (14:30)
[2016-06-18] MEDS: THIAMINE 100 MG TAB PO SCH (14:31)
--- NOTE | 2016-06-18 19:36 | PN ---
DATE OF SERVICE: 06/18/2016 This 81-year-old gentleman who was admitted with multiple medical problems including mental status changes, possible UTI with sepsis on IV antibiotics. The patient also has significant gait dysfunction and possible sepsis and as well as Parkinsonian exacerbation also. The medication adjusted by Neurology. The patient is slightly more alert and slightly more stronger, but still has significant weakness. Patient discussed significant rigidity and also needed significant help in the bed also even to adjust the position. On exam, alert and oriented x2. Dysarthric. Pulse 84, blood pressure 138/72, respirations 19, temperature 97.3, pulse ox 96% on room air. HEENT: Conjunctivae normal. NECK: No jugular venous distention. CARDIOVASCULAR: S1 and S2, muffled. RESPIRATORY: Breath sounds diminished at the bases. A few scattered rhonchi and crackles. ABDOMEN: Soft, nontender. No mass palpable. LEGS: No edema, no swelling. NERVOUS SYSTEM: Higher function as mentioned. Moves all four limbs ( ). Increased tone, increased weakness. LYMPHATIC: No lymphadenopathy in the neck, axillae or groin. SKIN: No ulcer, rash or bleeding. LABS: CBC within normal limits except platelets 117. Carbon dioxide 31, plasma lactic acid 0.8. ASSESSMENT: 1. Change in mental status with possible acute metabolic encephalopathy. 2. Urinary tract infection with possible sepsis, present on admission possibly related to chronic indwelling Clay catheter. 3. Gait dysfunction, possible acute Parkinson acute exacerbation as well as secondary to metabolic encephalopathy. 4. Increased carbon dioxide. 5. Increased lactic acid, possibly secondary to sepsis. 6. History of Parkinson's. 7. History of dementia. 8. Gait dysfunction. 9. Hypertension. 10. History of seizure disorder. 11. Chronic indwelling Clay catheter. 12. History of recurrent falls. 13. Gait dysfunction. 14. Anxiety and depression. 15. History of paranoid schizophrenia. 16. Thrombocytopenia. 17. FULL CODE. RECOMMENDATIONS AND DISCUSSION: In this 81-year-old gentleman who presented with multiple complex medical issues, we will monitor the patient closely. Continue the current medications. Continue symptomatic treatment. I recommend continuing with antibiotics and repeat labs. Hold the heparin for now. Otherwise, continue the rest of the medications including antibiotics. Follow the cultures. Further recommendations to follow. MTDD
[2016-06-18] MEDS: QUEtiapine 25 MG TAB PO SCH (20:24)
[2016-06-18] MEDS: LORazepam 0.5 MG TAB PO PRN (21:15)
[2016-06-19 08:45] LABS: Basophils % (A) 0 %; CH 32.8; CHCM 34.1; Eosinophils # (A) 0.4 k/uL (0-0.7); Eosinophils % (A) 4 %; HCT 44.9 % (39.0-53.0); HDW 2.52; HGB 14.9 gm/dL (13.0-17.5); Luc # (Auto) 0.13; Luc % (Auto) 1; Lymphocytes % (A) 30 %; MCH 32.1 pg (25.0-35.0); MCHC 33.3 g/dL (31.0-37.0); MCV 96.6 fL (80.0-100.0); Mean Platelet Volume 6.7; Monocytes # (A) 0.6 k/uL (0-1.0); Monocytes % (A) 6 %; Neutrophils # (A) 5.7 k/uL (1.3-7.7); Neutrophils % (A) 58 %; RBC 4.65 m/uL (4.30-5.90); RDW 12.9 % (11.5-15.5); WBC 9.9 k/uL (3.8-10.6); WBC (Perox) 10.29
[2016-06-19 09:14] LABS: Anion Gap 8 mmol/L; Blood Urea Nitrogen 20 mg/dL (9-20); Calcium 8.6 mg/dL (8.4-10.2); Carbon Dioxide 32 mmol/L (22-30); Chloride 101 mmol/L (98-107); Glucose 80 mg/dL (74-99); Non-African American GFR(MDRD) >60 (>60 ml/min/1.73 sqM); Potassium 4.1 mmol/L (3.5-5.1); Sodium 141 mmol/L (137-145)
[2016-06-19] MEDS: ENTACAPONE 200 MG TAB PO SCH ×3 (09:26→21:35)
[2016-06-19] MEDS: GABAPENTIN 300 MG CAP PO SCH ×2 (09:26→21:34)
[2016-06-19] MEDS: CARBIDOPA-LEVODOPA ER 25-100MG 1 EACH TABLET.ER PO SCH ×3 (09:26→21:35)
[2016-06-19] MEDS: FINASTERIDE 5 MG TAB PO SCH (09:26)
[2016-06-19] MEDS: DIVALPROEX 500 MG TABLET.DR PO SCH ×2 (09:27→21:35)
[2016-06-19] MEDS: TAMSULOSIN 0.4 MG CAP.ER.24H PO SCH (09:27)
[2016-06-19] MEDS: HYDROcodone/APAP 5-325MG 1 EACH TAB PO PRN (09:27)
[2016-06-19] MEDS: FUROSEMIDE 20 MG TAB PO SCH (09:27)
[2016-06-19] MEDS: CARBIDOPA-LEVODOPA ER 50-200MG 1 EACH TABLET.ER PO SCH ×3 (09:28→21:35)
[2016-06-19] MEDS: LISINOPRIL 5 MG TAB PO SCH (09:28)
[2016-06-19] MEDS: LEVOFLOXACIN 500MG-D5W PMX 500 MG in DEXTROSE/WATER 1 100ML.BAG IVPB SCH (12:32)
[2016-06-19] MEDS: MULTIVITAMINS, THERA 1 EACH TAB PO SCH (12:33)
[2016-06-19] MEDS: THIAMINE 100 MG TAB PO SCH (12:33)
[2016-06-19] MEDS: FOLIC ACID 1 MG TAB PO SCH (12:33)
[2016-06-19] MEDS: QUEtiapine 25 MG TAB PO SCH (21:35)
[2016-06-19] MEDS: LORazepam 0.5 MG TAB PO PRN (21:35)
[2016-06-20] MEDS: DIVALPROEX 500 MG TABLET.DR PO SCH ×2 (08:13→21:31)
[2016-06-20] MEDS: HYDROcodone/APAP 5-325MG 1 EACH TAB PO PRN ×2 (08:13→16:55)
[2016-06-20] MEDS: LISINOPRIL 5 MG TAB PO SCH (08:13)
[2016-06-20] MEDS: ENTACAPONE 200 MG TAB PO SCH ×3 (08:13→21:31)
[2016-06-20] MEDS: CARBIDOPA-LEVODOPA ER 50-200MG 1 EACH TABLET.ER PO SCH ×3 (08:14→21:31)
[2016-06-20] MEDS: FUROSEMIDE 20 MG TAB PO SCH (08:14)
[2016-06-20] MEDS: TAMSULOSIN 0.4 MG CAP.ER.24H PO SCH (08:14)
[2016-06-20] MEDS: FINASTERIDE 5 MG TAB PO SCH (08:14)
[2016-06-20] MEDS: GABAPENTIN 300 MG CAP PO SCH ×2 (08:14→21:31)
[2016-06-20] MEDS: CARBIDOPA-LEVODOPA ER 25-100MG 1 EACH TABLET.ER PO SCH ×3 (08:15→21:31)
[2016-06-20 09:48] LABS: Basophils % (A) 0 %; CH 33.1; CHCM 34.7; Eosinophils # (A) 0.4 k/uL (0-0.7); Eosinophils % (A) 5 %; HDW 2.53; HGB 13.9 gm/dL (13.0-17.5); Luc # (Auto) 0.09; Luc % (Auto) 1; Lymphocytes # (A) 1.8 k/uL (1.0-4.8); Lymphocytes % (A) 22 %; MCH 32.5 pg (25.0-35.0); MCV 95.7 fL (80.0-100.0); Mean Platelet Volume 7.8; Monocytes # (A) 0.6 k/uL (0-1.0); Monocytes % (A) 7 %; Neutrophils # (A) 5.5 k/uL (1.3-7.7); Neutrophils % (A) 66 %; RBC 4.28 m/uL (4.30-5.90); WBC 8.4 k/uL (3.8-10.6); WBC (Perox) 8.88
--- NOTE | 2016-06-20 10:05 | PN ---
DATE OF SERVICE: 06/19/2016 This is a 81-year-old gentleman who was admitted with UTI as well as change in mental status. The patient also had acute Parkinson acute exacerbation. With multiple medications, patient improved significantly. Patient is still mildly confused, sensorium is improved but still weak but definitely improving from that at the time of admission. On exam, alert and oriented x2, dysarthric. Pulse 72, blood pressure 130/83, respirations 17, temperature 97.4, pulse ox 94% on room air. HEENT: Conjunctivae normal. NECK: No jugular venous distension. CARDIOVASCULAR SYSTEM: S1, S2, muffled. RESPIRATORY: Breath sounds diminished at the bases, bilateral scattered rhonchi, no crackles. Abdomen is soft, nontender. EXTREMITIES: Legs no edema, no swelling. NERVOUS SYSTEM: Diffusely weak and tone increased and tremors present. SKIN: No ulcer, rash or bleeding. LABS: CBC, platelets are 142, CO2 is 32. ASSESSMENT: 1. Change in mental status with possible acute metabolic encephalopathy, multifactorial. 2. Urinary tract infection with possible sepsis, present on admission, possibly related to chronic indwelling Clay catheter. 3. Gait dysfunction, possible acute Parkinsonian acute exacerbation as well as secondary metabolic encephalopathy. 4. Increased CO2. 5. Increased lactic acid, possibly secondary to sepsis. 6. History of Parkinson's. 7. History of dementia. 8. Gait dysfunction. 9. Hypertension. 10. History of seizure disorder. 11. Chronic indwelling Clay catheter. 12. History of recurrent falls. 13. Gait dysfunction. 14. Anxiety, depression. 15. History of paranoid schizophrenia. 16. Thrombocytopenia. 17. FULL CODE. RECOMMENDATION: In this 81-year-old gentleman who presented with multiple complex medical issues, will monitor the patient closely. Continue with the current medications, continue with the symptomatic treatment. Otherwise, at this time I would recommend continue with antibiotics, continue with the anti-Parkinson medication. Monitor closely with Neurology, PT, OT, possible ECF rehab. Guarded prognosis because of multiple complex medical issues and please note the cultures are negative so far.
[2016-06-20 10:35] LABS: Anion Gap 8 mmol/L; Blood Urea Nitrogen 16 mg/dL (9-20); Calcium 8.2 mg/dL (8.4-10.2); Carbon Dioxide 30 mmol/L (22-30); Chloride 99 mmol/L (98-107); Glucose 99 mg/dL (74-99); Non-African American GFR(MDRD) >60 (>60 ml/min/1.73 sqM); Sodium 137 mmol/L (137-145)
[2016-06-20] MEDS: THIAMINE 100 MG TAB PO SCH (12:25)
[2016-06-20] MEDS: MULTIVITAMINS, THERA 1 EACH TAB PO SCH (12:25)
[2016-06-20] MEDS: LEVOFLOXACIN 500MG-D5W PMX 500 MG in DEXTROSE/WATER 1 100ML.BAG IVPB SCH (12:25)
[2016-06-20] MEDS: FOLIC ACID 1 MG TAB PO SCH (12:25)
--- NOTE | 2016-06-20 12:40 | DS ---
DATE OF ADMISSION: 06/16/2016 DATE OF DISCHARGE: FINAL DIAGNOSES: 1. Change in mental status with possible acute metabolic encephalopathy, multifactorial. 2. Urinary tract infection with possible sepsis, present on admission, possibly related to chronic indwelling Clay catheter. 3. Gait dysfunction, possibly Parkinsonian acute exacerbation as well as secondary to metabolic encephalopathy. 4. Increased CO2. 5. Gait dysfunction. 6. Increased lactic acid possibly secondary to sepsis. 7. History of Parkinson's. 8. History of dementia. 9. Depression. 10. Hypertension. 11. History of seizure disorder. 12. Chronic indwelling Clay catheter. 13. History of recurrent falls. 14. Anxiety, depression. 15. History of paranoid schizophrenia. 16. Thrombocytopenia. 17. FULL CODE. DISCHARGE DISPOSITION: The patient will be discharged in a stable condition with guarded prognosis. Total time taken is 35 minutes. HISTORY OF PRESENT ILLNESS: This is a 81-year-old gentleman with a past medical history of multiple medical problems was admitted with UTI sepsis and change in mental status and gait dysfunction. Patient also had significant tremors and Parkinson exacerbation. Also medications adjusted to show adjusted consulted antibiotics are given. Cultures are negative. On exam, vitals are stable. CARDIOVASCULAR SYSTEM: S1, S2, muffled. RESPIRATORY: Breaths sounds diminished at the bases. Tone is increased. Diffuse tremors present. Lactic acid normal as mentioned. DISCHARGE ADVICE: 1. Diet is as tolerated. Assisted feeds. 2. Activity as tolerated. 3. Follow up with Dr. Sanches in 1 to 2 weeks after discharge from [facility]. 4. Follow up with Dr. Castillo in 1 week for further adjustment of the Parkinsonian medications. The medications are: 1. Tylenol 650 q.6 p.r.n. 2. Carbidopa levodopa 25-100 one p.o. t.i.d. p.r.n. 3. Sinemet ER 50-200 one p.o. t.i.d. 4. Depakote 1000 mg b.i.d. 5. Comtan 200 mg p.o. t.i.d. 6. Proscar 5 mg p.o. daily. 7. Folic acid 1 mg p.o. daily. 8. Lasix 20 mg q.a.m. 9. Gabapentin 600 mg p.o. b.i.d. 10. Mcdonald 5 mg q.4 p.r.n. 11. Ativan 0.5 mg q.h.s. p.r.n. 12. Levaquin 500 mg daily for 5 days. 13. Zestril 10 mg p.o. daily. 14. Loteprednol 1 drop both eyes. 15. Mobic 7.5 mg p.o. b.i.d. p.r.n. 16. Multivitamin 1 p.o. p.o. daily. 17. Seroquel 25 mg q.h.s. 18. Flomax 0.4 daily. 19. Thiamine 100 mg p.o. daily. Once again, the patient will be discharged in a stable condition with guarded prognosis. Please note the increased dose of Sinemet.
[2016-06-20] MEDS: QUEtiapine 25 MG TAB PO SCH (21:31)
[2016-06-21] MEDS: HYDROcodone/APAP 5-325MG 1 EACH TAB PO PRN ×2 (02:25→08:34)
--- NOTE | 2016-06-21 08:07 | PN ---
DATE OF SERVICE: 06/20/2016 This 81-year-old gentleman admitted with change in mental status, UTI with sepsis and as well as possible Parkinson exacerbation is being closely monitored. Patient is extremely tremulous, unsteady in gait, which is, insurance preauthorization pending. On exam, confused, and also dysarthric. Pulse 84, blood pressure 107/54, respirations 16, temperature 99.1, pulse ox 97% on room air. HEENT: Conjunctivae normal, oral mucosa moist. NECK: No jugular venous distention, no carotid bruit, no lymph node enlargement. CARDIOVASCULAR: S1, S2, muffled, no S3, no S4. RESPIRATORY: Breath sounds diminished at the bases, bilateral scattered rhonchi, no crackles.. Abdomen is soft, nontender. EXTREMITIES: Legs no edema. NERVOUS SYSTEM: Diffusely weak. Lab investigation at this time shows WBC of 8.4, hemoglobin 13.9, other labs are noted. ASSESSMENT: 1. Change in mental status with possible acute metabolic encephalopathy, multifactorial. 2. Urinary tract infection with possible sepsis present on admission, possibly related to chronic indwelling Clay catheter. 3. Gait dysfunction, possibly acute Parkinsonian, acute exacerbation as well as secondary to metabolic encephalopathy. 4. Increased CO2. 5. Gait dysfunction. 6. Increased lactic acidosis secondary to sepsis. 7. History of Parkinson's. 8. History of dementia. 9. Depression. 10. Hypertension. 11. History of seizure disorder. 12. Chronic indwelling Clay catheter. 13. History of recurrent falls. 14. Anxiety, depression, not otherwise specified. 15. History of paranoid schizophrenia. 16. Thrombocytopenia. 17. FULL CODE. RECOMMENDATION AND DISCUSSION: In this 81-year old gentleman who presented with multiple complex medical issues, will continue the antibiotics. Continue with the increased dose of anti-Parkinson medications, PT, OT evaluation. The patient would require inpatient; however, will do the ECF rehab for continued improvement, and as well as attention to patient's safety. The prognosis guarded. Further recommendations to follow. [facility]
[2016-06-21] MEDS: CARBIDOPA-LEVODOPA ER 25-100MG 1 EACH TABLET.ER PO SCH (08:34)
[2016-06-21] MEDS: LISINOPRIL 5 MG TAB PO SCH (08:34)
[2016-06-21] MEDS: FINASTERIDE 5 MG TAB PO SCH (08:34)
[2016-06-21] MEDS: TAMSULOSIN 0.4 MG CAP.ER.24H PO SCH (08:35)
[2016-06-21] MEDS: GABAPENTIN 300 MG CAP PO SCH (08:35)
[2016-06-21] MEDS: ENTACAPONE 200 MG TAB PO SCH (08:35)
[2016-06-21] MEDS: FUROSEMIDE 20 MG TAB PO SCH (08:35)
[2016-06-21] MEDS: CARBIDOPA-LEVODOPA ER 50-200MG 1 EACH TABLET.ER PO SCH (08:35)
[2016-06-21] MEDS: DIVALPROEX 500 MG TABLET.DR PO SCH (08:36)
[2016-06-21 10:01] LABS: Anion Gap 8 mmol/L; Blood Urea Nitrogen 23 mg/dL (9-20); Calcium 8.3 mg/dL (8.4-10.2); Carbon Dioxide 31 mmol/L (22-30); Chloride 97 mmol/L (98-107); Glucose 92 mg/dL (74-99); Non-African American GFR(MDRD) >60 (>60 ml/min/1.73 sqM); Potassium 4.1 mmol/L (3.5-5.1); Sodium 136 mmol/L (137-145)
[2016-06-21 10:36] LABS: Basophils % (A) 0 %; CH 32.7; CHCM 33.9; Eosinophils # (A) 0.2 k/uL (0-0.7); Eosinophils % (A) 2 %; HCT 39.6 % (39.0-53.0); HDW 2.42; HGB 13.1 gm/dL (13.0-17.5); Luc % (Auto) 1; Lymphocytes # (A) 2.4 k/uL (1.0-4.8); Lymphocytes % (A) 24 %; MCH 32.1 pg (25.0-35.0); MCHC 33.1 g/dL (31.0-37.0); Mean Platelet Volume 7.1; Monocytes # (A) 0.7 k/uL (0-1.0); Monocytes % (A) 7 %; Neutrophils # (A) 6.5 k/uL (1.3-7.7); Neutrophils % (A) 66 %; RBC 4.08 m/uL (4.30-5.90); RDW 13.2 % (11.5-15.5); WBC 9.9 k/uL (3.8-10.6); WBC (Perox) 9.91
[2016-06-21] MEDS: MULTIVITAMINS, THERA 1 EACH TAB PO SCH (11:43)
[2016-06-21] MEDS: THIAMINE 100 MG TAB PO SCH (11:43)
[2016-06-21] MEDS: FOLIC ACID 1 MG TAB PO SCH (11:47)
[2016-06-21] MEDS ORDERED: LEVOFLOXACIN 500 MG TAB PO SCH (13:00)
[2016-06-21 15:17] VITALS: BP 155/83; PULSE 83; RESP 19; TEMP 99.1
--- NOTE | 2016-06-21 16:08 | DS ---
DATE OF ADMISSION: 06/16/2016 DATE OF DISCHARGE: 06/21/2016 DATE OF SERVICE: 06/21/2016 DISCHARGE ADDENDUM: This 81-year-old gentleman admitted with change in mental status, metabolic encephalopathy, UTI, sepsis, and Parkinson's acute exacerbation also. The patient is improving significantly. Patient is sent to [facility] for further evaluation. On exam, alert and oriented x3. Vitals are stable. CARDIOVASCULAR: S1, S2. RESPIRATORY: Breath sounds are diminished in the bases. a few scattered rhonchi. ABDOMEN: Soft. NERVOUS SYSTEM: Diffusely weak. Increased tone, increased tremors also present. Please refer to my previous dictation for discharge diagnoses and list of medications and follow closely with neurology and primary physician. Total time taken: 35 minutes.
== END 2016-06-21 15:21 | DRG 698 ==
LOC: EC 14:59 → INTOOBSV 19:25 → 4MS4W 19:25 → OBSVTOIN 06-16 17:20
PROVIDERS: ADMIT Hospitalist; ATTEND Hospitalist
DX: T83.511A Infection and inflammatory reaction due to indwelling urethral catheter, initial encounter (principal); A41.9 Sepsis, unspecified organism; G93.41 Metabolic encephalopathy; F20.0 Paranoid schizophrenia; D69.6 Thrombocytopenia, unspecified; G20 Parkinson's disease; F02.80 Dementia in other diseases classified elsewhere, unspecified severity, without behavioral disturbance, psychotic disturbance, mood disturbance, and anxiety; F32.9 Major depressive disorder, single episode, unspecified; G30.9 Alzheimer's disease, unspecified; G40.909 Epilepsy, unspecified, not intractable, without status epilepticus; G62.9 Polyneuropathy, unspecified; I10 Essential (primary) hypertension; N40.0 Benign prostatic hyperplasia without lower urinary tract symptoms; F41.9 Anxiety disorder, unspecified; R33.9 Retention of urine, unspecified; R29.6 Repeated falls; Z85.820 Personal history of malignant melanoma of skin; Z79.899 Other long term (current) drug therapy; Z88.0 Allergy status to penicillin; Z88.2 Allergy status to sulfonamides; Z88.8 Allergy status to other drugs, medicaments and biological substances; Z88.6 Allergy status to analgesic agent; Z88.1 Allergy status to other antibiotic agents; Z91.040 Latex allergy status; Y84.6 Urinary catheterization as the cause of abnormal reaction of the patient, or of later complication, without mention of misadventure at the time of the procedure
CPT/HCPCS: 36415; 51702; 70450; 71020; 80048; 80053; 81001; 82550; 82553; 83605; 83735; 83880; 84484; 85025; 85610; 85730; 87040; 87086; 90686; 90732; 93005; 96365; 99285

== ENCOUNTER 2016-08-01 12:12 | Emergency (ER) | payer MEDICARE ==
[2016-08-01] MEDS ORDERED: SODIUM CHLORIDE 0.9% 500 ML IV ONE (12:15)
--- NOTE | 2016-08-01 12:18 | ED ---
General Adult HPI - General Stated complaint: Weakness Time Seen by Provider: 08/01/16 12:12 Source: RN notes reviewed - History of Present Illness Initial comments: This is a 81-year-old male who presents emergency Department with a past medical history significant for seizures and dementia. Patient is normally alert and oriented times one. According to EMS the son arrived to find his father on the floor and confused. Patient states he did try to go to the bathroom and felt the floor was too weak to get up however the patient's history may not be that effective because of the dementia. There is no signs of trauma per EMS the patient was a little more confused when they first found him but now he is back to his baseline according to EMS. There is been no history of any difficulty breathing there's no history of any recent fevers or cough. There's been no history of any vomiting or diarrhea. Currently no more history is available because family is not here in the patient's significant dementia precludes him from being accurate - Related Data Home Medications Medication Instructions Recorded Confirmed Finasteride [Proscar] 5 mg PO DAILY 02/06/15 08/01/16 QUEtiapine [SEROquel] 25 mg PO HS 06/11/15 08/01/16 Tamsulosin HCl [Flomax] 0.4 mg PO DAILY 06/11/15 08/01/16 Loteprednol Etabonate [Lotemax] 1 drop BOTH EYES TID PRN 08/10/15 08/01/16 Lisinopril [Zestril] 10 mg PO DAILY 05/04/16 08/01/16 Furosemide [Lasix] 20 mg PO QAM 06/14/16 08/01/16 Gabapentin 600 mg PO Q12H 06/14/16 08/01/16 Meloxicam [Mobic] 7.5 mg PO BID PRN 06/14/16 08/01/16 Allopurinol [Zyloprim] 100 mg PO DAILY 08/01/16 08/01/16 Carbidopa/Levodopa [Carbidopa-Levo 1 tab PO TID 08/01/16 08/01/16 ER 50-200 Tab] Carbidopa/Levodopa 1 tab PO TID 08/01/16 08/01/16 [Carbidopa-Levodopa 25-100 Tab] Divalproex [Depakote] 1,000 mg PO Q12H 08/01/16 08/01/16 Entacapone [Comtan] 200 mg PO Q8H 08/01/16 08/01/16 Multivitamins, Thera [Multivitamin] 1 tab PO DAILY@1200 08/01/16 08/01/16 Previous Rx's Medication Instructions Recorded Acetaminophen Tab [Tylenol] 650 mg PO Q6HR PRN #0 tab 06/20/16 Folic Acid 1 mg PO DAILY@1200 tab 06/20/16 HYDROcodone/APAP 5-325MG [[place] 1 each PO Q4HR PRN #20 tab 06/20/16 5-325] LORazepam [Ativan] 0.5 mg PO HS PRN #10 tab 06/20/16 Thiamine [Vitamin B-1] 100 mg PO DAILY@1200 tab 06/20/16 Allergies Allergy/AdvReac Type Severity Reaction Status Date / Time aspirin Allergy Rash/Hives Verified 06/14/16 16:18 cephalexin monohydrate Allergy Unknown Verified 05/04/16 11:16 [From Keflex] diphenhydramine HCl Allergy Rash/Hives Verified 06/14/16 16:18 [From Benadryl] Penicillins Allergy Unknown Verified 05/04/16 11:16 Sulfa (Sulfonamide Allergy Unknown Verified 05/04/16 11:16 Antibiotics) latex AdvReac Unknown Verified 05/04/16 11:16 Review of Systems ROS Statement: Those systems with pertinent positive or pertinent negative responses have been documented in the HPI. ROS Other: All systems not noted in ROS Statement are negative. 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, jihan lens surgery Past Anesthesia/Blood Transfusion Reactions: No Reported Reaction Past Psychological History: Anxiety, Depression Additional Psychological History / Comment(s): paranoid schizophrenia Smoking Status: Never smoker Past Alcohol Use History: None Reported Past Drug Use History: None Reported - Past Family History Father Family Medical History: COPD Additional Family Medical History / Comment(s): ETOH Mother Additional Family Medical History / Comment(s): MENTAL ILLNESS General Exam - General Exam Comments Initial Comments: GENERAL: Patient is well-developed and well-nourished. Patient is nontoxic and well- hydrated and is in no acute distress. ENT: Neck is soft and supple. No significant lymphadenopathy is noted. Oropharynx is clear. Moist mucous membranes. Neck has full range of motion without eliciting any pain. EYES: The sclera were anicteric and conjunctiva were pink and moist. Extraocular movements were intact and pupils were equal round and reactive to light. Eyelids were unremarkable. PULMONARY: Unlabored respirations. Good breath sounds bilaterally. No audible rales rhonchi or wheezing was noted. CARDIOVASCULAR: There is a regular rate and rhythm without any murmurs gallops or rubs. ABDOMEN: Soft and nontender with normal bowel sounds. No palpable organomegaly was noted. There is no palpable pulsatile mass. SKIN: Skin is clear with no lesions or rashes and otherwise unremarkable. NEUROLOGIC: Patient is alert and oriented 1 Cranial nerves II through XII are grossly intact. Motor and sensory are also intact. Normal speech, volume and content. Symmetrical smile. MUSCULOSKELETAL: Normal extremities with adequate strength and full range of motion. No lower extremity swelling or edema. No calf tenderness. LYMPHATICS: No significant lymphadenopathy is noted PSYCHIATRIC: Normal psychiatric evaluation. Course Vital Signs 08/01/16 08/01/16 08/01/16 12:14 12:34 14:22 Temperature 99.0 F Pulse Rate 78 66 73 Respiratory 14 14 Rate Blood Pressure 115/59 90/55 O2 Sat by Pulse 95 95 Oximetry 08/01/16 14:50 Temperature Pulse Rate 67 Respiratory 18 Rate Blood Pressure 112/70 O2 Sat by Pulse 95 Oximetry Medical Decision Making - Medical Decision Making EKG shows normal sinus rhythm at 73 bpm SC interval is 160 QRS is 80 QT interval 370 QTC is 416. Patient's EKG shows no ST segment elevation or depression or T-wave abnormality she noted. Patient's CT of the brain showed no acute abnormality. Patient's chest x-ray showed no acute normalities. Patient was alert and oriented 1 the whole time he was here no family showed up so is difficult to get any further history. Patient seemed to be acting at his baseline from what we were told it was difficult to know exactly where his baseline was because no family came but when speaking to the family at home seemed like he was at his baseline currently. - Lab Data Result diagrams: 08/01/16 12:20 08/01/16 12:20 Lab Results 08/01/16 08/01/16 08/01/16 Range/Units 12:20 12:20 12:20 WBC 7.6 (3.8-10.6) k/uL RBC 3.95 L (4.30-5.90) m/uL Hgb 13.4 (13.0-17.5) gm/dL Hct 39.1 (39.0-53.0) % MCV 99.0 (80.0-100.0) fL MCH 34.0 (25.0-35.0) pg MCHC 34.3 (31.0-37.0) g/dL RDW 13.6 (11.5-15.5) % Plt Count 141 L (150-450) k/uL Neutrophils % 78 % Lymphocytes % 13 % Monocytes % 6 % Eosinophils % 1 % Basophils % 1 % Neutrophils # 6.0 (1.3-7.7) k/uL Lymphocytes # 1.0 (1.0-4.8) k/uL Monocytes # 0.5 (0-1.0) k/uL Eosinophils # 0.1 (0-0.7) k/uL Basophils # 0.1 (0-0.2) k/uL PT (9.0-12.0) sec INR (<1.1) APTT (22.0-30.0) sec Sodium 142 (137-145) mmol/L Potassium 4.0 (3.5-5.1) mmol/L Chloride 105 (98-107) mmol/L Carbon Dioxide 28 (22-30) mmol/L Anion Gap 9 mmol/L BUN 24 H (9-20) mg/dL Creatinine 1.30 H (0.66-1.25) mg/dL Est GFR (MDRD) Af Amer >60 (>60 ml/min/1.73 sqM) Est GFR (MDRD) Non-Af 53 (>60 ml/min/1.73 sqM) Glucose 74 (74-99) mg/dL POC Glucose (mg/dL) (75-99) mg/dL POC Glu Dispatcher Service ID Calcium 8.4 (8.4-10.2) mg/dL Total Bilirubin 1.0 (0.2-1.3) mg/dL AST 30 (17-59) U/L ALT 20 L (21-72) U/L Alkaline Phosphatase 43 (38-126) U/L Total Creatine Kinase 210 H (55-170) U/L CK-MB (CK-2) 2.9 H* (0.0-2.4) ng/mL CK-MB (CK-2) Rel Index 1.4 Troponin I <0.012 (0.000-0.034) ng/mL Total Protein 5.8 L (6.3-8.2) g/dL Albumin 3.1 L (3.5-5.0) g/dL Urine Color Urine Appearance (Clear) Urine pH (5.0-8.0) Ur Specific [place] (1.001-1.035) Urine Protein (Negative) Urine Glucose (UA) (Negative) Urine Ketones (Negative) Urine Blood (Negative) Urine Nitrate (Negative) Urine Bilirubin (Negative) Urine Urobilinogen (<2.0) mg/dL Ur Leukocyte Esterase (Negative) Urine Opiates Screen (NotDetected) Ur Oxycodone Screen (NotDetected) Urine Methadone Screen (NotDetected) Ur Propoxyphene Screen (NotDetected) Ur Barbiturates Screen (NotDetected) Valproic Acid 86.7 ug/mL U Tricyclic Antidepress (NotDetected) Ur Phencyclidine Scrn (NotDetected) Ur Amphetamines Screen (NotDetected) U Methamphetamines Scrn (NotDetected) U Benzodiazepines Scrn (NotDetected) Urine Cocaine Screen (NotDetected) U Marijuana (THC) Screen (NotDetected) 08/01/16 08/01/16 08/01/16 Range/Units 12:20 12:28 14:40 WBC (3.8-10.6) k/uL RBC (4.30-5.90) m/uL Hgb (13.0-17.5) gm/dL Hct (39.0-53.0) % MCV (80.0-100.0) fL MCH (25.0-35.0) pg MCHC (31.0-37.0) g/dL RDW (11.5-15.5) % Plt Count (150-450) k/uL Neutrophils % % Lymphocytes % % Monocytes % % Eosinophils % % Basophils % % Neutrophils # (1.3-7.7) k/uL Lymphocytes # (1.0-4.8) k/uL Monocytes # (0-1.0) k/uL Eosinophils # (0-0.7) k/uL Basophils # (0-0.2) k/uL PT 11.4 (9.0-12.0) sec INR 1.1 (<1.1) APTT 23.6 (22.0-30.0) sec Sodium (137-145) mmol/L Potassium (3.5-5.1) mmol/L Chloride (98-107) mmol/L Carbon Dioxide (22-30) mmol/L Anion Gap mmol/L BUN (9-20) mg/dL Creatinine (0.66-1.25) mg/dL Est GFR (MDRD) Af Amer (>60 ml/min/1.73 sqM) Est GFR (MDRD) Non-Af (>60 ml/min/1.73 sqM) Glucose (74-99) mg/dL POC Glucose (mg/dL) 194 H (75-99) mg/dL POC Glu Dispatcher Service ID Sanam Schafer A Calcium (8.4-10.2) mg/dL Total Bilirubin (0.2-1.3) mg/dL AST (17-59) U/L ALT (21-72) U/L Alkaline Phosphatase (38-126) U/L Total Creatine Kinase (55-170) U/L CK-MB (CK-2) (0.0-2.4) ng/mL CK-MB (CK-2) Rel Index Troponin I (0.000-0.034) ng/mL Total Protein (6.3-8.2) g/dL Albumin (3.5-5.0) g/dL Urine Color Dark [place] Urine Appearance Clear (Clear) Urine pH 5.5 (5.0-8.0) Ur Specific [place] 1.021 (1.001-1.035) Urine Protein Trace H (Negative) Urine Glucose (UA) Negative (Negative) Urine Ketones 1+ H (Negative) Urine Blood Negative (Negative) Urine Nitrate Negative (Negative) Urine Bilirubin Negative (Negative) Urine Urobilinogen <2.0 (<2.0) mg/dL Ur Leukocyte Esterase Negative (Negative) Urine Opiates Screen Not Detected (NotDetected) Ur Oxycodone Screen Not Detected (NotDetected) Urine Methadone Screen Not Detected (NotDetected) Ur Propoxyphene Screen Not Detected (NotDetected) Ur Barbiturates Screen Not Detected (NotDetected) Valproic Acid ug/mL U Tricyclic Antidepress Detected H (NotDetected) Ur Phencyclidine Scrn Not Detected (NotDetected) Ur Amphetamines Screen Not Detected (NotDetected) U Methamphetamines Scrn Not Detected (NotDetected) U Benzodiazepines Scrn Not Detected (NotDetected) Urine Cocaine Screen Not Detected (NotDetected) U Marijuana (THC) Screen Not Detected (NotDetected) Disposition Clinical Impression: Fall, Altered awareness, transient Disposition: HOME SELF-CARE Instructions: Fall Prevention for Older Adults (ED) Referrals: William Sanches DO [Primary Care Provider] - 1-2 days Time of Disposition: 15:36
[2016-08-01 12:31] LABS: Glucose,Whole Blood 194 mg/dL (75-99)
[2016-08-01 12:38] LABS: Basophils # (A) 0.1 k/uL (0-0.2); Basophils % (A) 1 %; CH 33.7; CHCM 34.1; Eosinophils # (A) 0.1 k/uL (0-0.7); Eosinophils % (A) 1 %; HCT 39.1 % (39.0-53.0); HDW 2.44; HGB 13.4 gm/dL (13.0-17.5); Luc # (Auto) 0.09; Luc % (Auto) 1; Lymphocytes % (A) 13 %; MCHC 34.3 g/dL (31.0-37.0); Mean Platelet Volume 8.1; Monocytes # (A) 0.5 k/uL (0-1.0); Monocytes % (A) 6 %; Neutrophils % (A) 78 %; RBC 3.95 m/uL (4.30-5.90); RDW 13.6 % (11.5-15.5); WBC 7.6 k/uL (3.8-10.6); WBC (Perox) 8.05
[2016-08-01 12:51] LABS: ALT 20 U/L (21-72); AST 30 U/L (17-59); Alkaline Phosphatase 43 U/L (38-126); Anion Gap 9 mmol/L; Blood Urea Nitrogen 24 mg/dL (9-20); Calcium 8.4 mg/dL (8.4-10.2); Carbon Dioxide 28 mmol/L (22-30); Chloride 105 mmol/L (98-107); Glucose 74 mg/dL (74-99); Non-African American GFR(MDRD) 53 (>60 ml/min/1.73 sqM); Sodium 142 mmol/L (137-145); Total Protein 5.8 g/dL (6.3-8.2)
[2016-08-01 12:55] LABS: INR 1.1 (<1.1); Partial Thromboplastin Time 23.6 sec (22.0-30.0); Prothrombin Time 11.4 sec (9.0-12.0)
[2016-08-01 12:56] LABS: Creatine Kinase 210 U/L (55-170)
--- NOTE | 2016-08-01 12:59 | XR ---
EXAMINATION TYPE: XR chest 2V DATE OF EXAM: 08/01/2016 12:51 PM COMPARISON: Chest x-ray June 14, 2016. HISTORY: Unresponsive and altered mental status. TECHNIQUE: Frontal and lateral views of the chest are obtained. FINDINGS: There is possible new opacity right lung base suspicious on 2 views. Left lung is clear. No pleural effusion or pneumothorax is seen bilaterally. The cardiac silhouette size is stable and mi ldly enlarged with atherosclerotic thoracic aorta. Chronic thickening right paratracheal stripe is redemonstrated. This correlates with tortuous prominent right brachiocephalic artery on CT cervical s pine August 08. The osseous structures are intact. Cholecystectomy clips are redemonstrated. IMPRESSION: Possible developing right basilar infiltrate and/or atelectasis, consider progress study .
[2016-08-01 13:08] LABS: Troponin I <0.012 ng/mL (0.000-0.034)
--- NOTE | 2016-08-01 13:10 | CT ---
EXAMINATION TYPE: CT brain wo con DATE OF EXAM: 08/01/2016 12:53 PM COMPARISON: CT brain May 04, 2016 and June 14, 2016 HISTORY: Patient poor historian. Nonresponsive. CT DLP: 1047.6 mGycm. Automated Exposure Control for Dose Reduction was Utilized. FINDINGS: There is no acute intracranial hemorrhage or midline shift identified. There is diffuse v entricular and sulcal prominence consistent with diffuse age-related cerebral atrophy. There is low- attenuation in the periventricular white matter consistent with chronic small vessel ischemic change. Mucous retention cysts or polyps in the inferior bilateral maxillary sinuses are present on current study. There is dependent air-fluid level in left maxillary sinus. Cannot exclude acute sinusitis at this level. Remainder paranasal sinuses are clear. The globes are intact bilaterally. IMPRESSION: No acute intracranial hemorrhage or midline shift. There is moderate diffuse age-relate d cerebral atrophy and moderate to severe chronic small vessel ischemic change redemonstrated without significant change from prior study is seen.
[2016-08-01 13:11] LABS: Creatine Kinase MB 2.9 ng/mL (0.0-2.4)
[2016-08-01 14:50] VITALS: RESP 18
[2016-08-01 15:00] LABS: Appearance,Urine Clear (Clear); Bilirubin,Urine Negative (Negative); Glucose,Urine (UA) Negative (Negative); Ketones,Urine 1+ (Negative); Leukocyte Esterase,Urine Negative (Negative); Nitrite,Urine Negative (Negative); PH, Urine 5.5 (5.0-8.0); Protein,Urine Trace (Negative); Specific Gravity,Urine 1.021 (1.001-1.035); UA Billing (MACRO vs. MICRO) CHEM; Urobilinogen,Urine <2.0 mg/dL (<2.0)
[2016-08-01 17:10] VITALS: BP 122/59; PULSE 79; TEMP 98.3
== END 2016-08-01 17:00 | disposition home or self-care (01) ==
LOC: EC 12:12
DX: R40.4 Transient alteration of awareness (principal); W18.30XA Fall on same level, unspecified, initial encounter; Y92.002 Bathroom of unspecified non-institutional (private) residence as the place of occurrence of the external cause; Z91.81 History of falling; Z79.899 Other long term (current) drug therapy; I10 Essential (primary) hypertension; G20 Parkinson's disease; F02.80 Dementia in other diseases classified elsewhere, unspecified severity, without behavioral disturbance, psychotic disturbance, mood disturbance, and anxiety; G40.909 Epilepsy, unspecified, not intractable, without status epilepticus; Z88.6 Allergy status to analgesic agent; Z88.1 Allergy status to other antibiotic agents; Z88.0 Allergy status to penicillin; Z88.2 Allergy status to sulfonamides; Z88.8 Allergy status to other drugs, medicaments and biological substances; Z91.040 Latex allergy status; F20.0 Paranoid schizophrenia; F41.9 Anxiety disorder, unspecified; F32.9 Major depressive disorder, single episode, unspecified
CPT/HCPCS: 36415; 70450; 71020; 80053; 80164; 80306; 81003; 82550; 82553; 84484; 85025; 85610; 85730; 93005; 99285

== ENCOUNTER 2016-08-13 07:00 | Inpatient (IN) | payer MEDICARE ==
[2016-08-13] MEDS ORDERED: SODIUM CHLORIDE 0.9% 1,000 ML IV STA (07:24)
--- NOTE | 2016-08-13 07:27 | ED ---
General Adult HPI - General Chief complaint: Recheck/Abnormal Lab/Rx Stated complaint: UNSTEADY Time Seen by Provider: 08/13/16 07:18 Source: patient, EMS, RN notes reviewed Mode of arrival: EMS Limitations: no limitations - History of Present Illness Initial comments: Patient is a pleasant 81-year-old male presenting to the emergency department for weakness and falls. Patient is a very poor historian and provides little information. No significant injury. Patient has a history of Parkinson's. Patient does not feel confused. No isolated area of weakness. - Related Data Home Medications Medication Instructions Recorded Confirmed Finasteride [Proscar] 5 mg PO DAILY 02/06/15 08/13/16 QUEtiapine [SEROquel] 25 mg PO HS 06/11/15 08/13/16 Tamsulosin HCl [Flomax] 0.4 mg PO DAILY 06/11/15 08/13/16 Loteprednol Etabonate [Lotemax] 1 drop BOTH EYES TID PRN 08/10/15 08/13/16 Lisinopril [Zestril] 10 mg PO DAILY 05/04/16 08/13/16 Furosemide [Lasix] 20 mg PO QAM 06/14/16 08/13/16 Gabapentin 600 mg PO Q12H 06/14/16 08/13/16 Meloxicam [Mobic] 7.5 mg PO BID PRN 06/14/16 08/13/16 Allopurinol [Zyloprim] 100 mg PO DAILY 08/01/16 08/13/16 Carbidopa/Levodopa [Carbidopa-Levo 1 tab PO TID 08/01/16 08/13/16 ER 50-200 Tab] Carbidopa/Levodopa 1 tab PO TID 08/01/16 08/13/16 [Carbidopa-Levodopa 25-100 Tab] Divalproex [Depakote] 1,000 mg PO Q12H 08/01/16 08/13/16 Entacapone [Comtan] 200 mg PO Q8H 08/01/16 08/13/16 Multivitamins, Thera [Multivitamin 1 tab PO DAILY@1200 08/01/16 08/13/16 (formulary)] Previous Rx's Medication Instructions Recorded Acetaminophen Tab [Tylenol] 650 mg PO Q6HR PRN #0 tab 06/20/16 Folic Acid 1 mg PO DAILY@1200 tab 06/20/16 HYDROcodone/APAP 5-325MG [[place] 1 each PO Q4HR PRN #20 tab 06/20/16 5-325] LORazepam [Ativan] 0.5 mg PO HS PRN #10 tab 06/20/16 Thiamine [Vitamin B-1] 100 mg PO DAILY@1200 tab 06/20/16 Allergies Allergy/AdvReac Type Severity Reaction Status Date / Time aspirin Allergy Rash/Hives Verified 08/13/16 07:05 cephalexin monohydrate Allergy Unknown Verified 08/13/16 07:05 [From Keflex] diphenhydramine HCl Allergy Rash/Hives Verified 08/13/16 07:05 [From Benadryl] Penicillins Allergy Unknown Verified 08/13/16 07:05 Sulfa (Sulfonamide Allergy Unknown Verified 08/13/16 07:05 Antibiotics) latex AdvReac Unknown Verified 08/13/16 07:05 Review of Systems ROS Statement: Those systems with pertinent positive or pertinent negative responses have been documented in the HPI. ROS Other: All systems not noted in ROS Statement are negative. 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, jihan lens surgery Past Anesthesia/Blood Transfusion Reactions: No Reported Reaction Past Psychological History: Anxiety, Depression Additional Psychological History / Comment(s): paranoid schizophrenia Smoking Status: Never smoker Past Alcohol Use History: None Reported Past Drug Use History: None Reported - Past Family History Father Family Medical History: COPD Additional Family Medical History / Comment(s): ETOH Mother Additional Family Medical History / Comment(s): MENTAL ILLNESS General Exam Limitations: no limitations General appearance: alert, in no apparent distress Head exam: Present: atraumatic, normocephalic Eye exam: Present: normal appearance, PERRL, EOMI ENT exam: Present: normal oropharynx Neck exam: Present: normal inspection. Absent: tenderness Respiratory exam: Present: normal lung sounds bilaterally Cardiovascular Exam: Present: regular rate, normal rhythm GI/Abdominal exam: Present: soft. Absent: tenderness Extremities exam: Present: pedal edema (+1 bilateral). Absent: calf tenderness Neurological exam: Present: alert Psychiatric exam: Present: normal affect, normal mood Skin exam: Present: normal color Course Vital Signs 08/13/16 08/13/16 07:01 07:29 Temperature 97.8 F Pulse Rate 77 75 Respiratory 20 18 Rate Blood Pressure 148/70 126/59 O2 Sat by Pulse 96 95 Oximetry EKG Findings - EKG Comments: EKG Findings:: Normal sinus rhythm at 76. Normal intervals. Normal axis. Normal QRS. Normal ST-T. Medical Decision Making - Medical Decision Making Patient does have some mild dehydration. Patient does not feel comfortable with his ability to take care of himself at home. Dr. Alyssa tran for admission. Covering for hospital call. Patient will likely need placement. - Lab Data Result diagrams: 08/13/16 07:30 08/13/16 07:30 Lab Results 08/13/16 08/13/16 08/13/16 Range/Units 07:30 07:30 07:30 WBC 7.9 (3.8-10.6) k/uL RBC 3.81 L (4.30-5.90) m/uL Hgb 13.0 (13.0-17.5) gm/dL Hct 37.4 L (39.0-53.0) % MCV 98.1 (80.0-100.0) fL MCH 34.2 (25.0-35.0) pg MCHC 34.9 (31.0-37.0) g/dL RDW 13.5 (11.5-15.5) % Plt Count 107 L (150-450) k/uL Neutrophils % 67 % Lymphocytes % 23 % Monocytes % 6 % Eosinophils % 2 % Basophils % 0 % Neutrophils # 5.3 (1.3-7.7) k/uL Lymphocytes # 1.8 (1.0-4.8) k/uL Monocytes # 0.5 (0-1.0) k/uL Eosinophils # 0.2 (0-0.7) k/uL Basophils # 0.0 (0-0.2) k/uL PT (9.0-12.0) sec INR (<1.1) APTT (22.0-30.0) sec Sodium 135 L (137-145) mmol/L Potassium 4.1 (3.5-5.1) mmol/L Chloride 100 (98-107) mmol/L Carbon Dioxide 31 H (22-30) mmol/L Anion Gap 4 mmol/L BUN 25 H (9-20) mg/dL Creatinine 1.40 H (0.66-1.25) mg/dL Est GFR (MDRD) Af Amer 59 (>60 ml/min/1.73 sqM) Est GFR (MDRD) Non-Af 49 (>60 ml/min/1.73 sqM) Glucose 73 L (74-99) mg/dL Calcium 8.6 (8.4-10.2) mg/dL Phosphorus 3.0 (2.5-4.5) mg/dL Total Bilirubin 0.7 (0.2-1.3) mg/dL AST 28 (17-59) U/L ALT 21 (21-72) U/L Alkaline Phosphatase 42 (38-126) U/L Total Creatine Kinase 94 (55-170) U/L CK-MB (CK-2) 2.0 (0.0-2.4) ng/mL CK-MB (CK-2) Rel Index 2.1 Troponin I <0.012 (0.000-0.034) ng/mL NT-Pro-B Natriuret Pep pg/mL Total Protein 5.8 L (6.3-8.2) g/dL Albumin 3.2 L (3.5-5.0) g/dL TSH 3.500 (0.465-4.680) mIU/L Free T4 1.16 (0.78-2.19) ng/dL Free T3 pg/mL 3.7 (2.8-5.3) pg/ml Urine Color Urine Appearance (Clear) Urine pH (5.0-8.0) Ur Specific [place] (1.001-1.035) Urine Protein (Negative) Urine Glucose (UA) (Negative) Urine Ketones (Negative) Urine Blood (Negative) Urine Nitrite (Negative) Urine Bilirubin (Negative) Urine Urobilinogen (<2.0) mg/dL Ur Leukocyte Esterase (Negative) 08/13/16 08/13/16 08/13/16 Range/Units 07:30 07:30 09:15 WBC (3.8-10.6) k/uL RBC (4.30-5.90) m/uL Hgb (13.0-17.5) gm/dL Hct (39.0-53.0) % MCV (80.0-100.0) fL MCH (25.0-35.0) pg MCHC (31.0-37.0) g/dL RDW (11.5-15.5) % Plt Count (150-450) k/uL Neutrophils % % Lymphocytes % % Monocytes % % Eosinophils % % Basophils % % Neutrophils # (1.3-7.7) k/uL Lymphocytes # (1.0-4.8) k/uL Monocytes # (0-1.0) k/uL Eosinophils # (0-0.7) k/uL Basophils # (0-0.2) k/uL PT 11.5 (9.0-12.0) sec INR 1.2 (<1.1) APTT 23.4 (22.0-30.0) sec Sodium (137-145) mmol/L Potassium (3.5-5.1) mmol/L Chloride (98-107) mmol/L Carbon Dioxide (22-30) mmol/L Anion Gap mmol/L BUN (9-20) mg/dL Creatinine (0.66-1.25) mg/dL Est GFR (MDRD) Af Amer (>60 ml/min/1.73 sqM) Est GFR (MDRD) Non-Af (>60 ml/min/1.73 sqM) Glucose (74-99) mg/dL Calcium (8.4-10.2) mg/dL Phosphorus (2.5-4.5) mg/dL Total Bilirubin (0.2-1.3) mg/dL AST (17-59) U/L ALT (21-72) U/L Alkaline Phosphatase (38-126) U/L Total Creatine Kinase (55-170) U/L CK-MB (CK-2) (0.0-2.4) ng/mL CK-MB (CK-2) Rel Index Troponin I (0.000-0.034) ng/mL NT-Pro-B Natriuret Pep 433 pg/mL Total Protein (6.3-8.2) g/dL Albumin (3.5-5.0) g/dL TSH (0.465-4.680) mIU/L Free T4 (0.78-2.19) ng/dL Free T3 pg/mL (2.8-5.3) pg/ml Urine Color Dark [place] Urine Appearance Clear (Clear) Urine pH 6.5 (5.0-8.0) Ur Specific [place] 1.014 (1.001-1.035) Urine Protein Negative (Negative) Urine Glucose (UA) Negative (Negative) Urine Ketones Trace H (Negative) Urine Blood Negative (Negative) Urine Nitrite Negative (Negative) Urine Bilirubin Negative (Negative) Urine Urobilinogen <2.0 (<2.0) mg/dL Ur Leukocyte Esterase Negative (Negative) - Radiology Data Radiology results: report reviewed (Computed tomography scan of the brain shows no acute process. Atrophy is present.), image reviewed (Chest x-ray shows no acute process) Disposition Clinical Impression: Dehydration, Weakness Disposition: ADMITTED IP TO THIS [facility] Time of Disposition: 09:46
[2016-08-13 07:49] LABS: Basophils % (A) 0 %; CH 34.3; CHCM 35.1; Eosinophils # (A) 0.2 k/uL (0-0.7); Eosinophils % (A) 2 %; HCT 37.4 % (39.0-53.0); HDW 2.49; Luc # (Auto) 0.15; Luc % (Auto) 2; Lymphocytes # (A) 1.8 k/uL (1.0-4.8); Lymphocytes % (A) 23 %; MCH 34.2 pg (25.0-35.0); MCHC 34.9 g/dL (31.0-37.0); MCV 98.1 fL (80.0-100.0); Mean Platelet Volume 8.5; Monocytes # (A) 0.5 k/uL (0-1.0); Monocytes % (A) 6 %; Neutrophils # (A) 5.3 k/uL (1.3-7.7); Neutrophils % (A) 67 %; RBC 3.81 m/uL (4.30-5.90); RDW 13.5 % (11.5-15.5); WBC 7.9 k/uL (3.8-10.6); WBC (Perox) 8.33
[2016-08-13 07:55] LABS: INR 1.2 (<1.1); Partial Thromboplastin Time 23.4 sec (22.0-30.0); Prothrombin Time 11.5 sec (9.0-12.0)
[2016-08-13 07:59] LABS: Calcium 8.6 mg/dL (8.4-10.2); Potassium 4.1 mmol/L (3.5-5.1); Total Bilirubin 0.7 mg/dL (0.2-1.3); Total Protein 5.8 g/dL (6.3-8.2)
[2016-08-13 08:07] LABS: Creatine Kinase 94 U/L (55-170)
[2016-08-13 08:19] LABS: Troponin I <0.012 ng/mL (0.000-0.034)
--- NOTE | 2016-08-13 08:23 | CT ---
EXAMINATION TYPE: CT brain wo con DATE OF EXAM: 08/13/2016 8:05 AM HISTORY: Weakness, unsteady CT DLP: 1047.10 mGycm. Automated Exposure Control for Dose Reduction was Utilized. TECHNIQUE: CT scan of the head is performed without contrast. COMPARISON: CT brain August 01, 2016. FINDINGS: There is no acute intracranial hemorrhage or midline shift identified. There is diffuse v entricular and sulcal prominence consistent with diffuse age-related cerebral atrophy. There is low- attenuation in the periventricular white matter consistent with chronic small vessel ischemic change. Some patchy opacification posterior left maxillary sinus remains present. There is eccentric mucou s retention cyst or polyp in the posterior right maxillary sinus redemonstrated. Remainder paranasal sinuses are clear. The globes are intact bilaterally. IMPRESSION: No acute intracranial hemorrhage or midline shift. There is moderate diffuse age-relate d cerebral atrophy and moderate to severe chronic small vessel ischemic change with left maxillary si nus disease all redemonstrated. No significant change from prior study is seen.
--- NOTE | 2016-08-13 08:24 | XR ---
EXAMINATION TYPE: XR chest 2V DATE OF EXAM: 08/13/2016 8:12 AM COMPARISON: Chest x-ray August 01, 2016. HISTORY: Confusion and weakness. TECHNIQUE: Frontal and lateral views of the chest are obtained. FINDINGS: Low lung volumes are redemonstrated. There is improved aeration medial right lung base. The re is no new focal air space opacity, pleural effusion, or pneumothorax seen. The cardiac silhouette size is stable and upper limits of normal atherosclerotic thoracic aorta. The osseous structures a re demineralized with multilevel spurring in the spine. Cholecystectomy clips are noted on lateral vi ew. IMPRESSION: Interval resolution of right medial basilar infiltrate, no new infiltrate is seen.
[2016-08-13 09:36] LABS: Appearance,Urine Clear (Clear); Bilirubin,Urine Negative (Negative); Glucose,Urine (UA) Negative (Negative); Ketones,Urine Trace (Negative); Leukocyte Esterase,Urine Negative (Negative); Nitrite,Urine Negative (Negative); PH, Urine 6.5 (5.0-8.0); Protein,Urine Negative (Negative); Specific Gravity,Urine 1.014 (1.001-1.035); UA Billing (MACRO vs. MICRO) CHEM; Urobilinogen,Urine <2.0 mg/dL (<2.0)
[2016-08-13] MEDS ORDERED: NALOXONE 0.4 MG/ML 1 ML VIAL IV PRN (09:48)
[2016-08-13] MEDS: SODIUM CHLORIDE 0.9% 1,000 ML IV SCH ×2 (09:51→23:37)
[2016-08-13] MEDS ORDERED: MELOXICAM 7.5 MG TAB PO PRN (15:49)
[2016-08-13] MEDS: CARBIDOPA-LEVODOPA ER 50-200MG 1 EACH TABLET.ER PO SCH ×2 (17:52→21:27)
[2016-08-13] MEDS: ENTACAPONE 200 MG TAB PO SCH ×2 (17:52→21:27)
--- NOTE | 2016-08-13 20:29 | HP ---
DATE OF SERVICE: 08/13/2016 DATE OF ADMISSION: CHIEF COMPLAINT: Frequent falls and unsteady gait. HISTORY OF PRESENT ILLNESS: Mr. Gilliland is a 81-year-old male with a past medical history of Parkinson disease, dementia, hypertension, seizure disorder, admitted to the hospital with the chief complaints of weakness and frequent falls. The patient has a history of Parkinson disease and has been getting worse for the past few years. The patient has had two prior admissions this year for the same complaint. His son usually takes care of him at home, but currently it has been a difficult situation with his son because Mr. Gilliland is having frequent falls at home. The patient is a very poor historian all that he to me like has and I don't want to follow. He is not show he knows that he is in the hospital, but. On questioning further she does not supply to any of my questions as per the edition notes the patient who did not have any significant change in her from his baseline except that also having frequent falls at home. The patient is a very poor historian, all he says to me is please help me, I do not want to fall. He knows that he is in a hospital but, on questioning further, he does not reply to any of my questions. As per ED notes, the patient did not have any significant change from his baseline except that of having frequent falls at home, as per his son. REVIEW OF SYSTEMS: Could not be done as the patient is not able to provide any further information. ALLERGIES: ASPIRIN, KEFLEX, BENADRYL, PENICILLIN, SULFA, LATEX. HOME MEDICATIONS: 1. Depakote 1000 mg p.o. b.i.d. 2. Flomax 0.4 mg p.o. daily. 3. Seroquel 25 mg p.o. at bedtime. 4. Multivitamin 1 tablet p.o. daily. 5. Meloxicam 7.5 mg p.o. b.i.d. 6. Lotiemax 1 drop in both eyes 3 times a day. 7. Zestril 10 mg p.o. daily. 8. Gabapentin 600 mg p.o. b.i.d. 9. Lasix 20 mg a.m. 10. Proscar 5 mg p.o. daily. 11. Berger 200 mg p.o. t.i.d. 12. Carbidopa levodopa 50/200 one tablet 3 times a day. 13. Tylenol 650 mg every 4 hours. PAST MEDICAL HISTORY: Significant for dementia, Parkinson's disease, hypertension, seizure disorder. PAST SURGICAL HISTORY: Cholecystectomy, removal of melanoma, anxiety and depression, SOCIAL HISTORY: Never a smoker. No alcohol use reported. FAMILY HISTORY: History of COPD and alcohol abuse. On examination, patient's vital signs temperature 97.2, heart rate 61, respiratory rate 16, blood pressure 149/76, saturating at 98% on room air. GENERAL EXAMINATION: Patient is comfortably lying in bed, he is having tremors of his hands. HEAD: Atraumatic, normocephalic. EYES: Pupils, round, and reactive to light. NECK: No JVD. No thyromegaly. CARDIOVASCULAR: S1, S2 heard. LUNGS: Bilateral breath sounds are positive. GI: Abdomen is soft, nontender. Bowel sounds positive. EXTREMITIES: Positive for bilateral pitting edema. No calf tenderness. INTENSIVIST: He is oriented to place and name. PSYCHIATRIC: He is calm and pleasant. SKIN: Patient has some aspirations done, bilateral knee joints and a few on his upper arms but no signs of active infection. LABS: White count of 7.9, hemoglobin is 13, platelets of 107. Sodium 135, potassium 4.1, chloride 100, bicarb 31, BUN 25, creatinine 1.40, troponin less than 0.12 x1. UA is negative for any urinary tract infection. The patient did have a CT of his head which was showing no acute intracranial hemorrhage or midline shift but age-related cerebral hypertrophy with severe chronic small vessel ischemic changes. Chest x-ray showing resolution of right basilar infiltrate. ASSESSMENT AND PLAN: 1. Encephalopathy, most likely secondary to dehydration. 2. Acute kidney injury, most likely secondary to above due to poor p.o. intake. 3. Recurrent falls. 4. Parkinson disease. 5. History of seizure disorder. 6. Hypertension. 7. 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 PLAN: As the patient has some signs of dehydration, we will hydrate the patient but patient also has bilateral lower extremity edema, so we will be cautious about giving him Lasix due to acute kidney injury. We will resume the rest of his home medications. emergency service worker on board for possible placement. As the patient has recurrent falls and also worsening of his dementia due to his Parkinson's disease, overall prognosis is guarded due to chronic multiple conditions. Further recommendations to follow, depending on the progress of the patient. ALEXIS
[2016-08-13] MEDS: DIVALPROEX 500 MG TABLET.DR PO SCH (21:27)
[2016-08-13] MEDS: QUEtiapine 25 MG TAB PO SCH (21:27)
[2016-08-13] MEDS: GABAPENTIN 300 MG CAP PO SCH (21:27)
[2016-08-14] MEDS: FINASTERIDE 5 MG TAB PO SCH (08:28)
[2016-08-14] MEDS: LISINOPRIL 10 MG TAB PO SCH (08:28)
[2016-08-14] MEDS: TAMSULOSIN 0.4 MG CAP.ER.24H PO SCH (08:28)
[2016-08-14] MEDS: ENTACAPONE 200 MG TAB PO SCH ×3 (08:28→22:32)
[2016-08-14] MEDS: CARBIDOPA-LEVODOPA ER 50-200MG 1 EACH TABLET.ER PO SCH ×3 (08:28→22:32)
[2016-08-14] MEDS: FUROSEMIDE 20 MG TAB PO SCH (08:28)
[2016-08-14] MEDS: MULTIVITAMINS, THERA 1 EACH TAB PO SCH (08:28)
[2016-08-14] MEDS: DIVALPROEX 500 MG TABLET.DR PO SCH ×2 (08:28→22:31)
[2016-08-14] MEDS: GABAPENTIN 300 MG CAP PO SCH ×2 (08:28→22:31)
[2016-08-14 11:34] LABS: Anion Gap 3 mmol/L; Blood Urea Nitrogen 14 mg/dL (9-20); Calcium 8.1 mg/dL (8.4-10.2); Carbon Dioxide 30 mmol/L (22-30); Chloride 105 mmol/L (98-107); Glucose 105 mg/dL (74-99); Non-African American GFR(MDRD) >60 (>60 ml/min/1.73 sqM); Potassium 4.1 mmol/L (3.5-5.1); Sodium 138 mmol/L (137-145)
[2016-08-14] MEDS: SODIUM CHLORIDE 0.9% 1,000 ML IV SCH (14:06)
--- NOTE | 2016-08-14 21:10 | PN ---
DATE OF SERVICE: 08/14/2016 CHIEF COMPLAINT: Frequent falls and unsteady gait. INTERVAL HISTORY: Mr. Gilliland is a 81-year-old male with a past medical history of Parkinson disease, dementia, hypertension, seizure disorder admitted to the hospital with a chief complaint of weakness and frequent falls. The patient needs 24/7 care due to worsening of his Parkinson disease. His son has been taking care of him, but currently not able to provide the necessary support. The patient is a very poor historian. He does not talk much. Review of systems could not be done, as the patient is not able to provide any information. The patient's medications have been reviewed. He is on: 1. Tylenol. 2. Carbidopa. 3. Depakote. 4. ( ). 5. Proscar. 6. Lasix. 7. Neurontin. 8. Zestril. 9. Mobic. 10. Multivitamin. 11. Naloxone. 12. Prednisolone eye drops. 13. Seroquel. 14. Flomax. Patient's vitals: Temperature 98.1, heart rate 64, respiratory 20, blood pressure 123/59, saturating at 96% on 2L of nasal cannula. GENERAL: Patient appears to be comfortably lying in bed, no acute distress, having tremors of his hands and feet. HEAD: Atraumatic, normocephalic. EYES: Pupils round and reactive to light. NECK: No JVD. CARDIOVASCULAR: S1, S2 heard. LUNGS: Bilateral breath sounds are positive. GI: Abdomen is soft. Bowel sounds positive, nontender. EXTREMITIES: Positive for mild bilateral pitting edema. INFORMATION SYSTEMS SUPERVISOR: He is oriented to place and name. PSYCHIATRIC: He is calm and pleasant. SKIN: Patient has some bruises on his elbows and knees which are likely due to falls. The patient's labs: Sodium 138, potassium 4.1, chloride 105, bicarb 30, BUN 14, creatinine 0.82. White count of 7.9, hemoglobin is 13. ASSESSMENT AND PLAN: 1. Encephalopathy, most likely secondary to dehydration. 2. Acute kidney injury, probably due to poor oral intake. His creatinine has been trending down. 3. Recurrent falls, most likely secondary to worsening of his Parkinson disease. 4. Parkinson disease. 5. History of seizure disorder. 6. Hypertension. 7. Dementia secondary to Parkinson disease and chronic small-vessel disease. PLAN: The patient was given IV hydration, showed significant improvement in his creatinine. For now, will discontinue his IV fluids and will continue with the current medical management. bag shop worker on board for possible placement, as his son will not be able to give him the support that he needs. Overall prognosis is guarded due to chronic medical conditions. Further recommendations to follow, depending on the progress of the patient. ALEXIS
[2016-08-14] MEDS: QUEtiapine 25 MG TAB PO SCH (22:32)
[2016-08-15] MEDS: LISINOPRIL 10 MG TAB PO SCH (08:20)
[2016-08-15] MEDS: ENTACAPONE 200 MG TAB PO SCH ×3 (08:20→22:22)
[2016-08-15] MEDS: DIVALPROEX 500 MG TABLET.DR PO SCH ×2 (08:20→22:22)
[2016-08-15] MEDS: FUROSEMIDE 20 MG TAB PO SCH (08:20)
[2016-08-15] MEDS: GABAPENTIN 300 MG CAP PO SCH ×2 (08:20→22:21)
[2016-08-15] MEDS: FINASTERIDE 5 MG TAB PO SCH (08:20)
[2016-08-15] MEDS: MULTIVITAMINS, THERA 1 EACH TAB PO SCH (08:20)
[2016-08-15] MEDS: TAMSULOSIN 0.4 MG CAP.ER.24H PO SCH (08:20)
[2016-08-15] MEDS: CARBIDOPA-LEVODOPA ER 50-200MG 1 EACH TABLET.ER PO SCH ×3 (08:20→22:22)
[2016-08-15] MEDS: QUEtiapine 25 MG TAB PO SCH (22:22)
[2016-08-15] MEDS: ACETAMINOPHEN TAB 325 MG TAB PO PRN (22:22)
[2016-08-15 22:27] VITALS: RESP 16
[2016-08-16] MEDS: prednisoLONE ACETATE 1% OPHTH DROPS 1 ML BTL BOTH EYES PRN ×2 (00:13→10:32)
--- NOTE | 2016-08-16 06:26 | PN ---
DATE OF SERVICE: 08/15/2016 INTERVAL HISTORY: Mr. Gruber is a 81-year-old male with past medical history of Parkinson disease, dementia, hypertension, seizure disorder, admitted to the hospital with a chief complaint of weakness and frequent falls. The patient is 24/7 care due to worsening of his Parkinson disease and his son is currently not able to take care of him and provide necessary support. The patient is a poor historian. He does not talk much. REVIEW OF SYSTEMS: He denies having any fever, chills, or rigors. No cough, no difficulty in breathing. No abdominal pain. Patient states that he does not want to go to a facility in [place] as he did not have a good experience at that facility. Patient's medications have been reviewed. Patient's vital signs: Temperature 98.6, heart rate 82, respiratory rate 16, blood pressure 164/80, saturating at 99% on 2 L of nasal cannula. GENERAL EXAMINATION: Patient appears to be comfortably lying in bed, no acute distress. He has tremors of his hands and feet. HEAD: Atraumatic, normocephalic. EYES: Pupils round and reactive to light. NECK: No JVD. CARDIOVASCULAR: S1, S2 heard. LUNGS: Bilateral breath sounds are positive. GI: Abdomen is soft. Bowel sounds positive. Nontender. EXTREMITIES: Positive for mild pitting edema bilaterally. RIPPLER: He is oriented to his name and place. No focal deficits. PSYCHIATRIC: The patient is calm and pleasant. SKIN: Patient does have some bruises on his elbows and knees, most likely due to his frequent falls. PATIENT'S LABS: Sodium 138, potassium 4.1, chloride 105, bicarb 30, BUN 14, creatinine 0.82. ASSESSMENT AND PLAN: 1. Encephalopathy, most likely secondary to dehydration. 2. Acute kidney injury secondary to poor p.o. intake. Creatinine has been trending down and is at baseline today. 3. Recurrent falls, most likely secondary to worsening of his Parkinson disease. 4. Parkinson disease. 5. History of seizure disorder. 6. Hypertension. 7. Dementia secondary to Parkinson disease and chronic small vessel disease. PLAN: The plan is to stop the patient's IV fluids as his creatinine is back to normal. Patient has bilateral lower extremity ( ). We will continue with Lasix for now. Overall, patient is stable for discharge. sheet metal duct worker supervisor on board and looking for possible placement. They are in contact with his son. Overall prognosis is guarded. Further recommendations depending on the progress of the patient. ALEXIS
[2016-08-16] MEDS: MULTIVITAMINS, THERA 1 EACH TAB PO SCH (08:26)
[2016-08-16] MEDS: FINASTERIDE 5 MG TAB PO SCH (08:26)
[2016-08-16] MEDS: DIVALPROEX 500 MG TABLET.DR PO SCH (08:26)
[2016-08-16] MEDS: FUROSEMIDE 20 MG TAB PO SCH (08:26)
[2016-08-16] MEDS: GABAPENTIN 300 MG CAP PO SCH (08:26)
[2016-08-16] MEDS: CARBIDOPA-LEVODOPA ER 50-200MG 1 EACH TABLET.ER PO SCH ×2 (08:26→16:02)
[2016-08-16] MEDS: LISINOPRIL 10 MG TAB PO SCH (08:26)
[2016-08-16] MEDS: TAMSULOSIN 0.4 MG CAP.ER.24H PO SCH (08:26)
[2016-08-16] MEDS: ENTACAPONE 200 MG TAB PO SCH ×2 (08:26→16:02)
[2016-08-16] MEDS: ACETAMINOPHEN TAB 325 MG TAB PO PRN (08:33)
[2016-08-16 15:02] VITALS: BP 121/66; PULSE 68; TEMP 98
--- NOTE | 2016-08-16 16:09 | DS ---
DATE OF ADMISSION: 08/16/2016 DATE OF DISCHARGE: 08/16/2016 DISCHARGE DIAGNOSES: 1. Acute metabolic encephalopathy most likely secondary to dehydration and volume depletion improved now. 2. Acute kidney injury, most likely prerenal, creatinine at baseline due to poor oral intake. 3. Recurrence falls likely due to worsening Parkinson's disease. 4. Parkinson's disease. 5. History of seizure disorder. 6. Hypertension. 7. Dementia. 8. Parkinson's. 9. Chronic small vessel ischemic disease. 10. Benign prostatic hypertrophy. HOSPITAL COURSE: Mr. Gilliland is a 81-year-old man with a known history of Parkinson's disease who was admitted to the hospital with a complaint of weakness and frequent falls. The patient was continued on IV fluids and continued on his Parkinson's medications. The patient ( ) significantly improved as well as his renal function improved as well. Patient does need 24/7 care due to worsening of his Parkinson's disease, underlying dementia and family is unable to provide him 24/7 support at this time. Otherwise, patient is a poor historian but awake and alert at baseline, oriented x1 only. Patient is being discharged to extended-care facility and is cleared for discharge. DISCHARGE PHYSICAL EXAMINATION: A 81 -year-old male lying in the bed. Awake, alert, oriented x1. He appears to be in no apparent distress. VITALS: Blood pressure is 121/66, pulse is 68, respirations 16, temperature afebrile, pulse ox 98% on 2 liters nasal cannula. LABORATORY DATA: Reviewed. The BUN is 14, creatinine 0.82. Calcium 8.1. Albumin 3.2. UA negative. Discharge physical examination done. DISCHARGE DIAGNOSES: Discharge medications include: 1. Proscar 5 mg p.o. daily. 2. Seroquel 20 q.h.s. 3. Flomax 0.4 mg p.o. daily. 4. Lotemax one drop both eyes t.i.d. p.r.n. 5. Lisinopril 10 mg p.o. daily. 6. Lasix 20 mg p.o. in the morning.. 7. Gabapentin 600 mg p.o. b.i.d. 8. Meloxicam 7.5 mg b.i.d. p.r.n. for pain. 9. Tylenol 650 mg p.o. q.6 hourly p.r.n. for pain. 10. Carbidopa/Levodopa ER 50/200, 1 tablet p.o. t.i.d. 11. Comtan 200 mg p.o. t.i.d. 12. Multivitamins 1 tablet p.o. daily. 13. Depakote 1000 mg p.o. b.i.d. The patient will be discharged to extended care facility in stable condition. Activity as tolerated. Heart healthy diet. Fall precautions. Time taken more than 35 minutes including 18 minutes counseling the patient and coordinating care. ALEXIS
== END 2016-08-16 18:38 | DRG 682 ==
LOC: EC 07:00 → 4MS4W 09:48 → OBSVTOIN 08-16 07:41
PROVIDERS: ADMIT Internal Medicine; ATTEND Internal Medicine
DX: N17.9 Acute kidney failure, unspecified (principal); G93.41 Metabolic encephalopathy; F20.0 Paranoid schizophrenia; G20 Parkinson's disease; E86.0 Dehydration; F02.80 Dementia in other diseases classified elsewhere, unspecified severity, without behavioral disturbance, psychotic disturbance, mood disturbance, and anxiety; G40.909 Epilepsy, unspecified, not intractable, without status epilepticus; I10 Essential (primary) hypertension; I73.9 Peripheral vascular disease, unspecified; N40.0 Benign prostatic hyperplasia without lower urinary tract symptoms; F32.9 Major depressive disorder, single episode, unspecified; F41.9 Anxiety disorder, unspecified; R29.6 Repeated falls; R33.9 Retention of urine, unspecified; Z85.820 Personal history of malignant melanoma of skin; Z79.899 Other long term (current) drug therapy; Z88.0 Allergy status to penicillin; Z88.2 Allergy status to sulfonamides; Z88.8 Allergy status to other drugs, medicaments and biological substances; Z88.6 Allergy status to analgesic agent; Z88.1 Allergy status to other antibiotic agents; Z91.040 Latex allergy status
CPT/HCPCS: 36415; 70450; 71020; 80048; 80053; 81003; 82550; 82553; 83880; 84100; 84439; 84443; 84481; 84484; 85025; 85610; 85730; 93005; 96360; 96361; 99285

== ENCOUNTER 2017-09-11 12:25 | Emergency (ER) | payer MEDICARE ==
[2017-09-11 12:34] VITALS: RESP 18
--- NOTE | 2017-09-11 13:39 | CT ---
EXAMINATION TYPE: CT brain cspine wo con DATE OF EXAM: 09/11/2017 COMPARISON: NONE CT brain August 13, 2016. CT cervical spine October 09, 2015 HISTORY: Fall injury with headache and neck pain CT DLP: 1820 mGycm. Automated Exposure Control for Dose Reduction was Utilized. TECHNIQUE: CT scan of the head and cervical spine are performed without contrast. FINDINGS: There is no acute intracranial hemorrhage or midline shift identified. There is ventricul ar and sulcal prominence consistent with diffuse cerebral atrophy there is low-attenuation in the per iventricular white matter. The calvarium is intact. There is soft tissue density suspect new small a cute high occipital hematoma in the midline near axial image 47. The visualized sinuses are clear. N either lens is well visualized. Cervical spine is visualized in its entirety from C1 through upper thoracic levels and demonstrates r edemonstrates reversal of normal cervical curvature without evidence of acute fracture or dislocation . Prevertebral soft tissue appears within normal limits. The C1-C2 articulation is within normal li mits on the coronal images. Atlantodental space interval narrowing is redemonstrated. Vertebral body heights are maintained. Ther e is prominent anterior spurring mid to lower cervical levels. There is moderate to advanced disc spa ce narrowing C5-C6 and C6-C7 levels redemonstrated review of axial images shows multilevel uncoverteb ral facet degenerative changes bilaterally contributing to multilevel neural foraminal narrowing. The re is greater than 1 cm thyroid nodule lower pole level left thyroid axial image 75 redemonstrated. A dvise nonemergent thyroid ultrasound follow-up if has not been performed at outside institution. Visu alized lung apices are clear. Moderate calcified plaque bilateral carotid bulbs is again seen. IMPRESSION: 1. There is no acute fracture or dislocation evident in the cervical spine. Loss of normal cervical c urvature multilevel degenerative changes redemonstrated without significant change. Thyroid nodularit y noted. Consider nonemergent follow-up. 2. No acute intracranial or midline shift is seen. There is moderate diffuse cerebral atrophy and chr onic small vessel ischemic change redemonstrated. There is suspected high small acute occipital scalp hematoma on current study.
--- NOTE | 2017-09-11 14:12 | ED ---
General Adult HPI - General Chief complaint: Fall Stated complaint: Fall Time Seen by Provider: 09/11/17 12:46 Source: patient, RN notes reviewed, old records reviewed Mode of arrival: EMS Limitations: no limitations - History of Present Illness Initial comments: This is an 82-year-old male to the ER for evaluation today. She is presenting for evaluation regards to fall. Patient coming in for care home. Patient poor strain. Patient and per records patient had a fall while getting out of bed this morning. His had no loss of consciousness, no blood thinners. Patient himself is complaining of left hip pain - Related Data Home Medications Medication Instructions Recorded Confirmed Finasteride [Proscar] 5 mg PO DAILY 02/06/15 09/11/17 Tamsulosin HCl [Flomax] 0.4 mg PO DAILY 06/11/15 09/11/17 Lisinopril [Zestril] 10 mg PO DAILY 05/04/16 09/11/17 Furosemide [Lasix] 20 mg PO DAILY 06/14/16 09/11/17 Meloxicam [Mobic] 7.5 mg PO BID PRN 06/14/16 09/11/17 Carbidopa/Levodopa [Carbidopa-Levo 1 tab PO TID@08,12,08/01/16 09/11/17 ER 50-200 Tab] Entacapone [Comtan] 200 mg PO TID@08,14,08/01/16 09/11/17 Multivitamins, Thera [Multivitamin 1 tab PO DAILY@1700 08/01/16 09/11/17 (formulary)] Divalproex [Depakote] 1,000 mg PO BID 08/13/16 09/11/17 ALPRAZolam [Xanax] 0.25 mg PO HS 09/11/17 09/11/17 Bisacodyl [Dulcolax] 10 mg RECTAL DAILY PRN 09/11/17 09/11/17 Gabapentin [Neurontin] 200 mg PO DAILY@1400 09/11/17 09/11/17 Gabapentin [Neurontin] 400 mg PO BID 09/11/17 09/11/17 Isosorbide Mononitrate ER [Imdur] 30 mg PO DAILY 09/11/17 09/11/17 Magnesium Hydroxide [Milk of 2,400 mg PO DAILY PRN 09/11/17 09/11/17 Magnesia] Na Phos,M-B/Na Phos,Di-Ba [Fleet 133 ml RECTAL ONCE 09/11/17 09/11/17 Adult] QUEtiapine [SEROquel] 50 mg PO HS 09/11/17 09/11/17 Allergies Allergy/AdvReac Type Severity Reaction Status Date / Time aspirin Allergy Rash/Hives Verified 09/11/17 13:09 cephalexin monohydrate Allergy Unknown Verified 09/11/17 13:09 [From Keflex] diphenhydramine HCl Allergy Rash/Hives Verified 09/11/17 13:09 [From Benadryl] Penicillins Allergy Unknown Verified 09/11/17 13:09 Sulfa (Sulfonamide Allergy Unknown Verified 09/11/17 13:09 Antibiotics) latex AdvReac Unknown Verified 09/11/17 13:09 Review of Systems ROS Statement: Those systems with pertinent positive or pertinent negative responses have been documented in the HPI. ROS Other: All systems not noted in ROS Statement are negative. 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, recurrent falls 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, jihan lens surgery Past Anesthesia/Blood Transfusion Reactions: No Reported Reaction Past Psychological History: Anxiety, Depression Smoking Status: Never smoker Past Alcohol Use History: None Reported Past Drug Use History: None Reported - Past Family History Father Family Medical History: COPD Additional Family Medical History / Comment(s): ETOH Mother Additional Family Medical History / Comment(s): MENTAL ILLNESS General Exam Limitations: no limitations General appearance: alert, in no apparent distress Head exam: Present: atraumatic, normocephalic, normal inspection Eye exam: Present: normal appearance, PERRL, EOMI. Absent: scleral icterus, conjunctival injection, periorbital swelling ENT exam: Present: normal exam, mucous membranes moist Neck exam: Present: normal inspection. Absent: tenderness, meningismus, lymphadenopathy Respiratory exam: Present: normal lung sounds bilaterally. Absent: respiratory distress, wheezes, rales, rhonchi, stridor Cardiovascular Exam: Present: regular rate, normal rhythm, normal heart sounds. Absent: systolic murmur, diastolic murmur, rubs, gallop, clicks GI/Abdominal exam: Present: soft, normal bowel sounds. Absent: distended, tenderness, guarding, rebound, rigid Extremities exam: Present: normal inspection, full ROM, normal capillary refill. Absent: tenderness, pedal edema, joint swelling, calf tenderness Back exam: Present: normal inspection Neurological exam: Present: alert, oriented X3, CN II-XII intact Psychiatric exam: Present: normal affect, normal mood Skin exam: Present: warm, dry, intact, normal color. Absent: rash Course Vital Signs 09/11/17 12:27 Temperature 98 F Pulse Rate 80 Respiratory 18 Rate Blood Pressure 125/66 O2 Sat by Pulse 94 L Oximetry Medical Decision Making - Medical Decision Making 82-year-old male the ER for evaluation. She is presenting for evaluation regarding fall. Mechanical trip and fall. Imaging negative. Patient can be discharged home - Radiology Data Radiology results: report reviewed (CT brain C-spine negative for acute disease. CXR and XR pelvis negative for trauatic injury), image reviewed Disposition Clinical Impression: Fall, Weakness, Parkinsons disease Disposition: HOME SELF-CARE Condition: Good Instructions: Fall Prevention for Older Adults (ED) Is patient prescribed a controlled substance at discharge?: No If prescribed controlled substance>3 days was MAPS reviewed?: No When asked, does pt state using other controlled substances?: No Referrals: Abhijit Reddy MD [Primary Care Provider] - 1-2 days
--- NOTE | 2017-09-11 14:45 | XR ---
EXAMINATION TYPE: XR Hip LT and AP Pelvis DATE OF EXAM: 09/11/2017 COMPARISON: NONE HISTORY: Pelvic and left hip pain after fall injury today TECHNIQUE: A single AP view of the pelvis is obtained. Two views of the left hip are obtained. FINDINGS: There is no acute fracture/dislocation evident in the pelvis. The sacroiliac joints appea r symmetric and unremarkable. There is mild to moderate symmetric axial joint space loss in both hip s. There is vascular calcification and phleboliths in the bilateral pelvis. Two views of left hip show no acute fracture or dislocation. No focal lytic or sclerotic lesion seen in the proximal left femur. Vascular calcification left groin region is seen. IMPRESSION: There is no acute fracture or dislocation in the pelvis or left hip.
--- NOTE | 2017-09-11 14:50 | XR ---
EXAMINATION TYPE: XR chest 1V DATE OF EXAM: 09/11/2017 COMPARISON: Chest x-ray August 13, 2016. HISTORY: Chest pain after falling tree today. TECHNIQUE: Single frontal view of the chest is obtained. FINDINGS: Low lung volumes are present. There is no focal air space opacity, pleural effusion, or pn eumothorax seen. The cardiac silhouette size is mildly enlarged without reflect thoracic aorta. Th e osseous structures are intact. IMPRESSION: No acute pulmonary process. No significant change from prior chest x-ray.
[2017-09-11 18:11] VITALS: BP 142/78; PULSE 74; TEMP 97.7
== END 2017-09-11 18:11 | disposition home or self-care (01) ==
LOC: EC 12:25
DX: G20 Parkinson's disease (principal); R53.1 Weakness; M25.552 Pain in left hip; I10 Essential (primary) hypertension; G40.909 Epilepsy, unspecified, not intractable, without status epilepticus; F32.9 Major depressive disorder, single episode, unspecified; F41.9 Anxiety disorder, unspecified; Z85.820 Personal history of malignant melanoma of skin; Z79.899 Other long term (current) drug therapy; Z88.6 Allergy status to analgesic agent; Z88.1 Allergy status to other antibiotic agents; Z88.8 Allergy status to other drugs, medicaments and biological substances; Z88.0 Allergy status to penicillin; Z88.2 Allergy status to sulfonamides; Z91.040 Latex allergy status; W01.0XXA Fall on same level from slipping, tripping and stumbling without subsequent striking against object, initial encounter; Y92.009 Unspecified place in unspecified non-institutional (private) residence as the place of occurrence of the external cause
CPT/HCPCS: 70450; 71045; 72125; 73502; 99284

== ENCOUNTER 2018-08-10 11:24 | Emergency (ER) | payer MEDICARE ==
[2018-08-10] MEDS ORDERED: MORPHINE SULFATE 4 MG/ML SYRINGE IV STA (11:48)
[2018-08-10] MEDS ORDERED: SODIUM CHLORIDE 0.9% 1,000 ML IV STA (11:48)
--- NOTE | 2018-08-10 11:56 | ED ---
Abdominal Pain HPI - General Chief Complaint: Abdominal Pain Stated Complaint: Abd Pain Time Seen by Provider: 08/10/18 11:47 Source: EMS, RN notes reviewed, old records reviewed Mode of arrival: EMS Limitations: altered mental status - History of Present Illness Initial Comments: This is an 83-year-old male the ER for evaluation. This patient has a for evaluation regards to abdominal pain. Patient's poor strain secondary to dementia, brought in by EMS prior from nursing facility. Nurses facility during transfer the patient had severe severe abdominal pain. Patient complains of pain throughout his abdomen with no improvement. Patient otherwise unable to complain of any other, denies nausea denies vomiting denies recent bowel movement or diarrhea, no fevers reported. Transfer paperwork MD Complaint: abdominal pain (diffuse) -: days(s) Location: diffuse Radiation: none Migration to: no migration Severity: moderate Severity scale (1-10): 4 Quality: aching Consistency: constant Improves With: bowel movement, vomiting Worsens With: bowel movement Associated Symptoms: denies other symptoms, nausea - Related Data Home Medications Medication Instructions Recorded Confirmed Finasteride [Proscar] 5 mg PO DAILY 02/06/15 08/10/18 Tamsulosin HCl [Flomax] 0.4 mg PO DAILY 06/11/15 08/10/18 Lisinopril [Zestril] 10 mg PO DAILY 05/04/16 08/10/18 Carbidopa/Levodopa [Carbidopa-Levo 1 tab PO TID 08/01/16 08/10/18 ER 50-200 Tab] Entacapone [Comtan] 200 mg PO TID 08/01/16 08/10/18 Multivitamins, Thera [Multivitamin 1 tab PO DAILY@1700 08/01/16 08/10/18 (formulary)] Divalproex [Depakote] 1,000 mg PO BID 08/13/16 08/10/18 ALPRAZolam [Xanax] 0.25 mg PO HS 09/11/17 08/10/18 Bisacodyl [Dulcolax] 10 mg RECTAL DAILY PRN 09/11/17 08/10/18 Gabapentin [Neurontin] 200 mg PO DAILY 09/11/17 08/10/18 Isosorbide Mononitrate ER [Imdur] 30 mg PO DAILY 09/11/17 08/10/18 Magnesium Hydroxide [Milk of 2,400 mg PO DAILY PRN 09/11/17 08/10/18 Magnesia] Na Phos,M-B/Na Phos,Di-Ba [Fleet 133 ml RECTAL ONCE PRN 09/11/17 08/10/18 Adult] QUEtiapine [SEROquel] 50 mg PO HS 09/11/17 08/10/18 Acetaminophen Tab [Tylenol Tab] 650 mg PO Q4H PRN 08/10/18 08/10/18 Albuterol Nebulized [Ventolin 2.5 mg INHALATION RT-Q4H 08/10/18 08/10/18 Nebulized] Fluocinonide/Emollient Base 1 applic TOPICAL BID PRN 08/10/18 08/10/18 [Fluocinonide-E 0.05% Cream] Ketoconazole 2% Shampoo [Nizoral] 1 applic TOPICAL TUFR PRN 08/10/18 08/10/18 guaiFENesin-DM 100-10MG/5ML 10 ml PO Q4H PRN 08/10/18 08/10/18 [Robitussin DM] Allergies Allergy/AdvReac Type Severity Reaction Status Date / Time aspirin Allergy Rash/Hives Verified 08/10/18 11:45 cephalexin monohydrate Allergy Unknown Verified 08/10/18 11:45 [From Keflex] diphenhydramine HCl Allergy Rash/Hives Verified 08/10/18 11:45 [From Benadryl] Penicillins Allergy Unknown Verified 08/10/18 11:45 Sulfa (Sulfonamide Allergy Unknown Verified 08/10/18 11:45 Antibiotics) latex AdvReac Unknown Verified 08/10/18 11:45 Review of Systems ROS Statement: Those systems with pertinent positive or pertinent negative responses have been documented in the HPI. ROS Other: All systems not noted in ROS Statement are negative. 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, recurrent falls 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, jihan lens surgery Past Anesthesia/Blood Transfusion Reactions: No Reported Reaction Past Psychological History: Anxiety, Depression Smoking Status: Never smoker Past Alcohol Use History: None Reported Past Drug Use History: None Reported - Past Family History Father Family Medical History: COPD Additional Family Medical History / Comment(s): ETOH Mother Additional Family Medical History / Comment(s): MENTAL ILLNESS General Exam Limitations: altered mental status General appearance: alert, in no apparent distress Head exam: Present: atraumatic, normocephalic, normal inspection Eye exam: Present: normal appearance, PERRL, EOMI. Absent: scleral icterus, conjunctival injection, periorbital swelling ENT exam: Present: normal exam, mucous membranes moist Neck exam: Present: normal inspection. Absent: tenderness, meningismus, lymphadenopathy Respiratory exam: Present: normal lung sounds bilaterally. Absent: respiratory distress, wheezes, rales, rhonchi, stridor Cardiovascular Exam: Present: regular rate, normal rhythm, normal heart sounds. Absent: systolic murmur, diastolic murmur, rubs, gallop, clicks GI/Abdominal exam: Present: soft, distended, tenderness, normal bowel sounds. Absent: guarding, rebound, rigid Extremities exam: Present: normal inspection, full ROM, normal capillary refill. Absent: tenderness, pedal edema, joint swelling, calf tenderness Back exam: Present: normal inspection Neurological exam: Present: alert, oriented X3, CN II-XII intact Psychiatric exam: Present: normal affect, normal mood Skin exam: Present: warm, dry, intact, normal color. Absent: rash Course Vital Signs 08/10/18 11:25 Temperature 98.4 F Pulse Rate 64 Respiratory 18 Rate Blood Pressure 148/77 O2 Sat by Pulse 95 Oximetry - Reevaluation(s) Reevaluation #1: 08/10/18 13:09 Medical record is reviewed Reevaluation #2: 08/10/18 13:09 Patient does appear to have pain control Medical Decision Making - Medical Decision Making 83 male to the ED sp abdominal pain, bowel regimen given, patient has bowel movement, can be discharged - Lab Data Result diagrams: 08/10/18 11:35 08/10/18 12:45 Lab Results 08/10/18 08/10/18 08/10/18 Range/Units 11:35 11:35 12:45 WBC 6.6 (3.8-10.6) k/uL RBC 4.12 L (4.30-5.90) m/uL Hgb 13.6 (13.0-17.5) gm/dL Hct 41.1 (39.0-53.0) % MCV 99.7 (80.0-100.0) fL MCH 33.1 (25.0-35.0) pg MCHC 33.2 (31.0-37.0) g/dL RDW 13.0 (11.5-15.5) % Plt Count 138 L (150-450) k/uL Neutrophils % 54 % Lymphocytes % 35 % Monocytes % 8 % Eosinophils % 2 % Basophils % 0 % Neutrophils # 3.6 (1.3-7.7) k/uL Lymphocytes # 2.3 (1.0-4.8) k/uL Monocytes # 0.5 (0-1.0) k/uL Eosinophils # 0.1 (0-0.7) k/uL Basophils # 0.0 (0-0.2) k/uL Sodium 140 (137-145) mmol/L Potassium 4.4 (3.5-5.1) mmol/L Chloride 107 (98-107) mmol/L Carbon Dioxide 32 H (22-30) mmol/L Anion Gap 1 mmol/L BUN 20 (9-20) mg/dL Creatinine 0.65 L (0.66-1.25) mg/dL Est GFR (CKD-EPI)AfAm >90 (>60 ml/min/1.73 sqM) Est GFR (CKD-EPI)NonAf >90 (>60 ml/min/1.73 sqM) Glucose 88 (74-99) mg/dL Plasma Lactic Acid Lee 1.5 (0.7-2.0) mmol/L Calcium 8.1 L (8.4-10.2) mg/dL Total Bilirubin 0.6 (0.2-1.3) mg/dL AST 19 (17-59) U/L ALT 10 L (21-72) U/L Alkaline Phosphatase 42 (38-126) U/L Total Protein 5.0 L (6.3-8.2) g/dL Albumin 2.4 L (3.5-5.0) g/dL Amylase <30 L (30-110) U/L Lipase 66 (23-300) U/L - Radiology Data Radiology results: report reviewed (CT abd pelvis shows moderate stool burdwen), image reviewed Disposition Clinical Impression: Weakness, Dementia, Constipation, Abdominal pain Disposition: HOME SELF-CARE Condition: Good Instructions (If sedation given, give patient instructions): Abdominal Pain (ED ), Constipation (ED) Is patient prescribed a controlled substance at d/c from ED?: No Referrals: Abhijit Reddy MD [Primary Care Provider] - 1-2 days
[2018-08-10 12:22] LABS: Basophils % (A) 0 %; Eosinophils # (A) 0.1 k/uL (0-0.7); Eosinophils % (A) 2 %; HCT 41.1 % (39.0-53.0); HGB 13.6 gm/dL (13.0-17.5); Lymphocytes # (A) 2.3 k/uL (1.0-4.8); Lymphocytes % (A) 35 %; MCH 33.1 pg (25.0-35.0); MCHC 33.2 g/dL (31.0-37.0); MCV 99.7 fL (80.0-100.0); Mean Platelet Volume 7.4; Monocytes # (A) 0.5 k/uL (0-1.0); Monocytes % (A) 8 %; Neutrophils # (A) 3.6 k/uL (1.3-7.7); Neutrophils % (A) 54 %; Platelet Count 138 k/uL (150-450); RBC 4.12 m/uL (4.30-5.90); WBC 6.6 k/uL (3.8-10.6)
[2018-08-10 13:10] LABS: ALT 10 U/L (21-72); AST 19 U/L (17-59); Albumin 2.4 g/dL (3.5-5.0); Alkaline Phosphatase 42 U/L (38-126); Amylase <30 U/L (30-110); Anion Gap 1 mmol/L; Blood Urea Nitrogen 20 mg/dL (9-20); Calcium 8.1 mg/dL (8.4-10.2); Carbon Dioxide 32 mmol/L (22-30); Chloride 107 mmol/L (98-107); Glucose 88 mg/dL (74-99); Lipase 66 U/L (23-300); Potassium 4.4 mmol/L (3.5-5.1); Sodium 140 mmol/L (137-145); Total Bilirubin 0.6 mg/dL (0.2-1.3)
--- NOTE | 2018-08-10 14:22 | CT ---
EXAMINATION TYPE: CT abdomen pelvis w con DATE OF EXAM: 08/10/2018 COMPARISON: None HISTORY: abdominal pain CT DLP: 1403.1 mGycm Automated exposure control for dose reduction was used. TECHNIQUE: Helical acquisition of images was performed from the lung bases through the pelvis. CONTRAST: Performed without Oral Contrast and with IV Contrast, patient injected with 100 mL of Isovue 300. FINDINGS: LUNG BASES: Bibasilar consolidations are seen with trace pleural effusions. Consolidations most likel y represent atelectasis with multifocal atelectasis within the lingula and right middle lobe also see n. Few coronary artery calcifications and mild cardiac enlargement are also noted in the visualized l ower thorax. LIVER/GB: There are multiple very low-density hepatic cysts measuring up to 2.3 cm. Mild intrahepatic biliary ductal dilatation and extrahepatic biliary ductal dilatation may be on the basis of postchol ecystectomy status. PANCREAS: No significant abnormality is seen. SPLEEN: No significant abnormality is seen. ADRENALS: No significant abnormality is seen. KIDNEYS: 1.8 cm cortical left renal cyst is noted. Remainder the kidneys enhance and excrete symmetri kelly. No hydronephrosis. FREE AIR: No free air is visualized. URINARY BLADDER: No significant abnormality is seen. ADENOPATHY: No greater than 1 cm short axis lymph node within the abdomen or pelvis. OSSEOUS STRUCTURES: Multilevel degenerative changes of the spine are evident, moderate to severe. Ve ry mild compression deformity of the L2 vertebral body is age indeterminant. BOWEL: Numerous sigmoid diverticula are present without pericolonic fat stranding. Other few scatter ed diverticula are seen within the remainder the colon without pericolonic fat stranding. Large amoun t retained colonic stool is seen. Terminal ileum is decompressed. Appendix is air-filled and within n ormal limits. No dilated large or small bowel. Although there is a paucity of small bowel in the left upper quadrant no reversal of the SMV/SMA is seen. OTHER: Extensive atherosclerosis is present of the abdominal aorta and its branches. IMPRESSION: 1. SIGMOID DIVERTICULOSIS AND MODERATE AMOUNT RETAINED COLONIC STOOL. NO ACUTE INTRA-ABDOMINAL PATHOL OGY IS SEEN. 2. TRACE BILATERAL PLEURAL EFFUSIONS AND BIBASILAR AIRSPACE DISEASE, FAVORED TO REPRESENT ATELECTASIS RATHER THAN PNEUMONIA. 3. MULTIPLE HEPATIC LESIONS THAT LIKELY REPRESENT CYSTS. SOLITARY BENIGN-APPEARING LEFT RENAL CYST IS ALSO SEEN.
[2018-08-10] MEDS ORDERED: SENNOSIDES-DOCUSATE SODIUM 1 EACH TAB PO STA (14:29)
[2018-08-10] MEDS ORDERED: POLYETHYLENE GLYCOL 3350 17 GM POWD.PACK PO STA (14:29)
[2018-08-10] MEDS ORDERED: GLYCERIN ADULT SUPPOSITORY 1 EACH RECTAL STA (14:33)
[2018-08-10 14:49] LABS: Appearance,Urine Clear (Clear); Bilirubin,Urine Negative (Negative); Blood,Urine Negative (Negative); Color,Urine Dark Yellow; Glucose,Urine (UA) Negative (Negative); Ketones,Urine 1+ (Negative); Leukocyte Esterase,Urine Negative (Negative); Nitrite,Urine Negative (Negative); PH, Urine 6.5 (5.0-8.0); Protein,Urine Trace (Negative); Specific Gravity,Urine 1.039 (1.001-1.035)
[2018-08-10 15:20] VITALS: TEMP 97.9
[2018-08-10 17:13] VITALS: BP 137/80; PULSE 62; RESP 18
== END 2018-08-10 17:00 | disposition home or self-care (01) ==
LOC: EC 11:24
DX: K59.00 Constipation, unspecified (principal); R53.1 Weakness; F03.90 Unspecified dementia, unspecified severity, without behavioral disturbance, psychotic disturbance, mood disturbance, and anxiety; R11.2 Nausea with vomiting, unspecified; I10 Essential (primary) hypertension; G40.909 Epilepsy, unspecified, not intractable, without status epilepticus; G20 Parkinson's disease; F41.9 Anxiety disorder, unspecified; F32.9 Major depressive disorder, single episode, unspecified; Z90.49 Acquired absence of other specified parts of digestive tract; Z85.820 Personal history of malignant melanoma of skin; Z79.899 Other long term (current) drug therapy; Z88.6 Allergy status to analgesic agent; Z88.1 Allergy status to other antibiotic agents; Z88.8 Allergy status to other drugs, medicaments and biological substances; Z88.0 Allergy status to penicillin; Z88.2 Allergy status to sulfonamides; Z91.040 Latex allergy status
CPT/HCPCS: 36415; 80053; 82150; 83605; 83690; 85025; 81003; 74177; 99285; 96374; 96361 ×4; J2270; Q9967